=== PATIENT | male | born 1940 | race American Indian/Alaskan Native ===

== ENCOUNTER 2017-01-28 10:50 | Emergency (ER) | payer MEDICARE, MEDICAID ==
--- NOTE | 2017-01-28 10:57 | C.PDOC ---
History Of Present Illness HISTORY LIMITED DUE TO CLINICAL CONDITION. 76 y/o MALE BROUGHT IN BY AMBULANCE FOR REPORTED BREAKTHROUGH SEIZURE DURING DIALYSIS EARLIER TODAY. 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 PT PRESENTS IN POST-ICTAL STATE. DENIES ANY PAIN AND SPEAKING IN LIMITED SENTENCES. NO OTHER COMPLAINTS. Time Seen by Provider: 01/28/17 10:53 History Per: EMS History/Exam Limitations: clinical condition Recent Seizure Activity Began: Just Before Arrival Number Of Seizures: One Quality Of Seizure: Generalized Post-ictal Period: Yes Recent travel outside of the [place]: No Past Medical History Reviewed: Historical Data, Nursing Documentation, Vital Signs Vital Signs: Last Vital Signs Temp 97.5 F L 01/28/17 11:58 Pulse 88 01/28/17 13:12 Resp 17 01/28/17 13:12 BP 134/71 01/28/17 13:12 Pulse Ox 100 01/28/17 13:12 - Medical History PMH: Alzheimer's Disease, Dementia, HTN, Peripheral Edema (R leg edema), End Stage Renal Disease, Chronic Kidney Disease, Seizures Family History: States: Unknown Family Hx - Social History Hx Alcohol Use: No Hx Substance Use: No - Immunization History Hx Tetanus Toxoid Vaccination: No Hx Influenza Vaccination: No Hx Pneumococcal Vaccination: No Review Of Systems Review Of Systems: ROS cannot be obtained secondary to pt's inabilty to answer questions. (LIMITED DUE TO CONDITION, DENIES PAIN OR HEADACHE) Physical Exam - Physical Exam Appears: Non-toxic, Other (AAO X 2, SPEAKING IN LIMITED SENTENCES) Skin: Warm, Dry Head: Atraumatic, Normacephalic Oral Mucosa: Moist Chest: Symmetrical Cardiovascular: Rhythm Regular Respiratory: Normal Breath Sounds, No Rales, No Rhonchi, No Wheezing Gastrointestinal/Abdominal: Soft, No Tenderness, No Guarding, No Rebound Back: Normal Inspection Extremity: Normal ROM, Capillary Refill (< 2 SEC. ) ED Course And Treatment ECG: Interpreted By Me ECG Rhythm: Sinus Rhythm Rate From EC (BPM) O2 Sat by Pulse Oximetry: 97 (RA) Pulse Ox Interpretation: Normal ED OBSERVATION Discharge: Yes Date of observation admission: 01/28/17 Time of observation admission: 10:45 - Observation admission statement Patient is being placed in observation because:: BREAKTHROUGH SZ - Goals of Observation Goals of observation are:: NEURO INTACT - Progress Note Progress Note: 01/28/17 13:24 IMPROVED ALERTNESS. +PO TRIAL. NO RECUR SZ. Disposition Counseled Patient/Family Regarding: Studies Performed, Diagnosis, Need For Followup - Disposition Referrals: YOUR,PMD [Other] Disposition: HOME/ ROUTINE Disposition Time: 13:25 Condition: IMPROVED Instructions: Recurrent Seizures in Adults (ED) - Clinical Impression Clinical Impression: Breakthrough seizure - Scribe Statement The provider has reviewed the documentation as recorded by the Jason COLEMAN Provider Attestation: All medical record entries made by the Jason were at my direction and personally dictated by me. I have reviewed the chart and agree that the record accurately reflects my personal performance of the history, physical exam, medical decision making, and the department course for this patient. I have also personally directed, reviewed, and agree with the discharge instructions and disposition.
[2017-01-28 12:00] LABS: INR 3.6
[2017-01-28 14:46] VITALS: BP 149/96; PULSE 90; RESP 22; TEMP 97.7; O2SAT 96
--- NOTE | 2017-01-31 14:10 | CARD ---
APPROVED REPORT EKG Measurement Heart [id number] <Conclusion> Normal sinus rhythm Possible Left atrial enlargement Possible Right ventricular hypertrophy Prolonged QT Abnormal ECG
== END 2017-01-28 14:45 | disposition home or self-care (01) ==
LOC: C.ER 10:50
DX: G40.909 Epilepsy, unspecified, not intractable, without status epilepticus (principal); I12.9 Hypertensive chronic kidney disease with stage 1 through stage 4 chronic kidney disease, or unspecified chronic kidney disease; N18.9 Chronic kidney disease, unspecified; Z99.2 Dependence on renal dialysis; E11.9 Type 2 diabetes mellitus without complications; G30.9 Alzheimer's disease, unspecified; F02.80 Dementia in other diseases classified elsewhere, unspecified severity, without behavioral disturbance, psychotic disturbance, mood disturbance, and anxiety

== ENCOUNTER 2017-09-20 11:37 | Inpatient (IN) | payer MEDICARE, MEDICAID ==
--- NOTE | 2017-09-20 12:24 | C.PDOC ---
History Of Present Illness 76 yr old male with PMHx of dementia and seizures, sent to the ER from [facility] after being found on the floor this morning. As per [facility], unsure of cause and duration. Patient was found to have a laceration to the forehead. ROS is unable to be obtained due to clinical condition. Patient is A&Ox1, oriented to person which is baseline. - HPI Time Seen by Provider: 09/20/17 12:08 Chief Complaint (Nursing): Trauma History Per: Other ([facility]) History/Exam Limitations: clinical condition Onset/Duration Of Symptoms: Unknown Past Medical History Reviewed: Historical Data, Nursing Documentation, Vital Signs Vital Signs: Last Vital Signs Temp 97.6 F 09/20/17 16:00 Pulse 74 09/20/17 16:00 Resp 18 09/20/17 16:00 BP 121/82 09/20/17 16:00 Pulse Ox 98 09/20/17 16:00 - Medical History PMH: Alzheimer's Disease, Dementia, Deep Vein Thrombosis, HTN, Peripheral Edema (R leg edema), End Stage Renal Disease, Chronic Kidney Disease, Seizures Family History: States: No Known Family Hx - Social History Hx Alcohol Use: No Hx Substance Use: No - Immunization History Hx Tetanus Toxoid Vaccination: No Hx Influenza Vaccination: No Hx Pneumococcal Vaccination: No Review Of Systems Review Of Systems: ROS cannot be obtained secondary to pt's inabilty to answer questions. Physical Exam - Physical Exam Appears: Non-toxic, No Acute Distress Skin: Warm, Dry, Other (+ 4cm laceration to the forehead) Head: Normacephalic, Other (+ swelling, tenderness and hematoma to the forehead) Eye(s): bilateral: Normal Inspection, PERRL, EOMI Oral Mucosa: Moist Neck: Normal, Normal ROM, No Midline Cervical Tenderness, No Paracervical Tenderness, Supple Chest: Symmetrical, No Tenderness Cardiovascular: Rhythm Regular, No Murmur Respiratory: Normal Breath Sounds, No Rales, No Rhonchi, No Wheezing Back: Normal Inspection, No CVA Tenderness Neurological/Psych: Other (A&Ox1 ) ED Course And Treatment - Laboratory Results Result Diagrams: 09/20/17 12:56 09/20/17 14:15 ECG: Interpreted By Me, Viewed By Me ECG Rhythm: Sinus Rhythm Interpretation Of ECG: PVC. Normal intervals. Normal axis. Nonspecific T wave changes. Rate From EC (BPM) O2 Sat by Pulse Oximetry: 96 (RA) Pulse Ox Interpretation: Normal - Other Rad CXR X-Ray: Viewed By Me, Read By Radiologist Interpretation: HISTORY: chest pain. COMPARISON: Chest x-ray performed . TECHNIQUE: Chest, one view. FINDINGS: Examination limited by habitus. LUNGS: Right hilar/ infrahilar opacity, possibly infiltrate. Please note that chest x-ray has limited sensitivity for the detection of pulmonary masses. PLEURA: No significant pleural effusion identified. No definite pneumothorax . CARDIOVASCULAR: Cardiomegaly. Atherosclerotic calcification of the aorta. OSSEOUS STRUCTURES: No acute osseous abnormality identified. VISUALIZED UPPER ABDOMEN: Mild elevation of the right hemidiaphragm. OTHER FINDINGS: None. IMPRESSION: Right hilar/ infrahilar opacity, possibly infiltrate. Cardiomegaly. - CT Scan/US CT - Head Other Rad Studies (CT/US): Read By Radiologist, Radiology Report Reviewed CT/US Interpretation: PROCEDURE: CT HEAD WITHOUT CONTRAST. HISTORY: Fall. COMPARISON: 06/21/2016. TECHNIQUE: Axial computed tomography images were obtained through the head/brain without intravenous contrast. Radiation dose: Total exam DLP = 867.23 mGy-cm. This CT exam was performed using one or more of the following dose reduction techniques: Automated exposure control, adjustment of the mA and/or kV according to patient size, and/or use of iterative reconstruction technique. FINDINGS: HEMORRHAGE: No intracranial hemorrhage. BRAIN: Again seen are moderate chronic microangiopathic changes. There is no mass, mass effect or abnormal extra-axial fluid collection. There are coarse atherosclerotic calcifications in the cavernous carotid arteries. There are symmetric bilateral basal ganglia calcifications. VENTRICLES: There is moderate age-related global parenchymal volume loss and proportionate enlargement of the ventricles and cortical sulci. CALVARIUM: There is no calvarial fracture. Again seen are right parietal and left frontal susan holes. There is a large midline and left paramedian frontal scalp tissue hematoma. PARANASAL SINUSES: There is chronic left sphenoid sinusitis with soft tissue extending in the pneumatized left lateral recess of the sphenoid sinus. . The remaining included paranasal sinuses are predominantly clear. MASTOID AIR CELLS : Predominantly clear. OTHER FINDINGS: None. IMPRESSION: No acute intracranial abnormality. Large midline and left frontal scalp hematoma. Moderate chronic microangiopathic changes and moderate age-related global parenchymal volume loss. Chronic left sphenoid sinusitis. CT - Cervical Spine Other Rad Studies (CT/US): Read By Radiologist, Radiology Report Reviewed CT/US Interpretation: PROCEDURE: CT Cervical Spine without contrast. HISTORY: Trauma. COMPARISON: None available. TECHNIQUE: Axial computed tomography images were obtained of the cervical spine without the use of intravenous contrast. Coronal and sagittal reformatted images were created and reviewed. Radiation dose: Total exam DLP = 691.40 mGy-cm. This CT exam was performed using one or more of the following dose reduction techniques: Automated exposure control, adjustment of the mA and/or kV according to patient size, and/ or use of iterative reconstruction technique. FINDINGS: VERTEBRAE: There is normal alignment of the cervical vertebral bodies. There is straightening of the cervical spine with loss of normal cervical lordosis. Vertebral height is normal. There is no acute fracture or traumatic anterior listhesis. The craniocervical junction is normal. The atlantoaxial joint is normal. DISCS/ SPINAL CANAL/NEURAL FORAMINA: There is multilevel degenerative disc disease with anterior osteophytes, reduced disc heights and multilevel facet arthropathy , worse at C6-7 with a broad-based central disc protrusion, moderate to severe neural foraminal stenosis and mild spinal canal stenosis. PARASPINAL SOFT TISSUES: The paraspinous soft tissues are normal. OTHER FINDINGS: No apical pneumothorax. IMPRESSION: 1. No acute fracture or traumatic anterior listhesis. 2. Straightening of the cervical spine may be positional or related to muscle spasm. 3. Multilevel degenerative disc disease, worse at C6-7 with broad-based central disc protrusion, mild spinal canal stenosis and moderate to severe neural foraminal narrowing. Laceration - Laceration Repair Forehead Wound Length (In cm): 4 Description Of Wound: Linear Wound Cleansed With: Sterile Saline (300 cc) Anesthesia: Lidocaine 1%, With Epi Wound Examination: Irrigated With Saline, No FB With Wound Exploration, No Tendon Injury With Wound Exploration Wound Closure: Suture (5) Suture Technique And Material Used: Interrupted, Prolene (5-0) Wound Complexity: Simple Medical Decision Making Medical Decision Making: IMPRESSION: Head injury s/p fall, laceration PLAN: * CT - Head, Cervical Spine * CXR * EKG * Labs * Tetanus IM NOTE: * Laceration repair done, bacitracin is applied, patient tolerated the procedure well * Tetanus is administered Disposition Discussed With : Lilian Urrutia Doctor Will See Patient In The: Hospital - Disposition Disposition: HOSPITALIZED Disposition Time: 14:49 Condition: FAIR - Clinical Impression Clinical Impression: Syncope, Seizure, Head injury, NSTEMI (non-ST elevated myocardial infarction) - Scribe Statement The provider has reviewed the documentation as recorded by the Scribe Anni Tolbert Provider Attestation: All medical record entries made by the Fernandoibe were at my direction and personally dictated by me. I have reviewed the chart and agree that the record accurately reflects my personal performance of the history, physical exam, medical decision making, and the department course for this patient. I have also personally directed, reviewed, and agree with the discharge instructions and disposition.
--- NOTE | 2017-09-20 13:05 | RAD ---
HISTORY: chest pain COMPARISON: Chest x-ray performed 06/20/16 TECHNIQUE: Chest, one view. FINDINGS: Examination limited by habitus. LUNGS: Right hilar/ infrahilar opacity, possibly infiltrate. Please note that chest x-ray has limited sensitivity for the detection of pulmonary masses. PLEURA: No significant pleural effusion identified. No definite pneumothorax . CARDIOVASCULAR: Cardiomegaly. Atherosclerotic calcification of the aorta. OSSEOUS STRUCTURES: No acute osseous abnormality identified. VISUALIZED UPPER ABDOMEN: Mild elevation of the right hemidiaphragm. OTHER FINDINGS: None. IMPRESSION: Right hilar/ infrahilar opacity, possibly infiltrate. Cardiomegaly.
[2017-09-20 13:15] LABS: INR 1.7; PROTHROMBIN TIME 19.8 SECONDS (9.7-12.2)
[2017-09-20 13:16] LABS: RBC 4.42 Mil/uL (4.40-5.90); WHITE BLOOD COUNT 4.8 K/uL (4.8-10.8)
[2017-09-20 13:25] LABS: MEAN CORPUSCULAR HEMOGLOBIN 32.8 pg (27.0-31.0); MEAN PLATELET VOLUME 8.2 fL (7.2-11.7); RED CELL DISTRIBUTION WIDTH 18.6 % (11.5-14.5)
[2017-09-20 13:26] LABS: HEMOGLOBIN 14.5 g/dL (12.0-18.0); MEAN CELL VOLUME 99.1 fL (80.0-94.0)
[2017-09-20 13:29] LABS: LYMPH % 19.9 % (20.0-40.0); MONO % 17.7 % (0.0-10.0); NEUT % 58.3 % (50.0-75.0)
[2017-09-20 13:30] LABS: BASO % 0.1 % (0.0-2.0); NEUT # 2.8 K/uL (1.8-7.0); NRBC % 0.2 % (0.0-2.0)
[2017-09-20 13:31] LABS: EOS # 0.2 K/uL (0.0-0.7); LYMPH # 0.9 K/uL (1.0-4.3); MONO # 0.8 K/uL (0.0-0.8)
--- NOTE | 2017-09-20 14:00 | CT ---
PROCEDURE: CT HEAD WITHOUT CONTRAST. HISTORY: Fall COMPARISON: 06/21/2016. TECHNIQUE: Axial computed tomography images were obtained through the head/brain without intravenous contrast. Radiation dose: Total exam DLP = 867.23 mGy-cm. This CT exam was performed using one or more of the following dose reduction techniques: Automated exposure control, adjustment of the mA and/or kV according to patient size, and/or use of iterative reconstruction technique. FINDINGS: HEMORRHAGE: No intracranial hemorrhage. BRAIN: Again seen are moderate chronic microangiopathic changes. There is no mass, mass effect or abnormal extra-axial fluid collection. There are coarse atherosclerotic calcifications in the cavernous carotid arteries. There are symmetric bilateral basal ganglia calcifications. VENTRICLES: There is moderate age-related global parenchymal volume loss and proportionate enlargement of the ventricles and cortical sulci. CALVARIUM: There is no calvarial fracture. Again seen are right parietal and left frontal susan holes. There is a large midline and left paramedian frontal scalp tissue hematoma. PARANASAL SINUSES: There is chronic left sphenoid sinusitis with soft tissue extending in the pneumatized left lateral recess of the sphenoid sinus. . The remaining included paranasal sinuses are predominantly clear. MASTOID AIR CELLS: Predominantly clear. OTHER FINDINGS: None. IMPRESSION: No acute intracranial abnormality. Large midline and left frontal scalp hematoma. Moderate chronic microangiopathic changes and moderate age-related global parenchymal volume loss. Chronic left sphenoid sinusitis.
--- NOTE | 2017-09-20 14:11 | CT ---
PROCEDURE: CT Cervical Spine without contrast HISTORY: Trauma COMPARISON: None available. TECHNIQUE: Axial computed tomography images were obtained of the cervical spine without the use of intravenous contrast. Coronal and sagittal reformatted images were created and reviewed. Radiation dose: Total exam DLP = 691.40 mGy-cm. This CT exam was performed using one or more of the following dose reduction techniques: Automated exposure control, adjustment of the mA and/or kV according to patient size, and/or use of iterative reconstruction technique. FINDINGS: VERTEBRAE: There is normal alignment of the cervical vertebral bodies. There is straightening of the cervical spine with loss of normal cervical lordosis. Vertebral height is normal. There is no acute fracture or traumatic anterior listhesis. The craniocervical junction is normal. The atlantoaxial joint is normal. DISCS/SPINAL CANAL/NEURAL FORAMINA: There is multilevel degenerative disc disease with anterior osteophytes, reduced disc heights and multilevel facet arthropathy, worse at C6-7 with a broad-based central disc protrusion, moderate to severe neural foraminal stenosis and mild spinal canal stenosis. PARASPINAL SOFT TISSUES: The paraspinous soft tissues are normal. OTHER FINDINGS: No apical pneumothorax. IMPRESSION: 1. No acute fracture or traumatic anterior listhesis. 2. Straightening of the cervical spine may be positional or related to muscle spasm. 3. Multilevel degenerative disc disease, worse at C6-7 with broad-based central disc protrusion, mild spinal canal stenosis and moderate to severe neural foraminal narrowing.
[2017-09-20 14:38] LABS: CALCIUM 8.6 mg/dl (8.6-10.4)
[2017-09-20] MEDS ORDERED: Lidocaine 1%/Epinephrine 1:100000 30 ml vial IJ ONE (14:54)
[2017-09-20 14:59] LABS: TROPONIN I 0.199 ng/mL (0.00-0.120)
[2017-09-20] MEDS ORDERED: Lidocaine 2% w Epi 1:100,000 Inj IJ ONE (15:06)
[2017-09-20] MEDS ORDERED: DTap Vaccine 0.5 ml Vial IM STA (15:36)
[2017-09-20] MEDS ORDERED: Bacitracin 500 Units/gm Oint Foilpak UD TOP ONE (15:47)
[2017-09-20] MEDS ORDERED: Tdap Vaccine 0.5 ml Vial (10-64 yrs) IM ONE (16:55)
[2017-09-20] MEDS ORDERED: Bacitracin 500 Units/gm Oint Foilpak UD ONE (16:56)
--- NOTE | 2017-09-20 16:57 | CP.PCM.HP ---
Past Patient History - Infectious Disease Hx of Infectious Diseases: None - Past Medical History & Family History Past Medical History?: Yes - Past Social History Smoking Status: Never Smoked - CARDIAC Hx Hypertension: Yes Hx Peripheral Edema: Yes (R leg edema) - PULMONARY Hx Respiratory Disorders: No - NEUROLOGICAL Hx Alzheimer's Disease: Yes Hx Dementia: Yes Hx Seizures: Yes - HEENT Hx HEENT Problems: No - RENAL Hx Chronic Kidney Disease: Yes - ENDOCRINE/METABOLIC Hx Diabetes Mellitus Type 1: Yes Hx Diabetes Mellitus Type 2: Yes - HEMATOLOGICAL/ONCOLOGICAL Other/Comment: DVT - MUSCULOSKELETAL/RHEUMATOLOGICAL Hx Falls: No - PSYCHIATRIC Hx Substance Use: No - SURGICAL HISTORY Hx Surgeries: (Unable to obtain) - ANESTHESIA Hx Anesthesia: Yes Meds Allergies/Adverse Reactions: Allergies Allergy/AdvReac Type Severity Reaction Status Date / Time No Known Allergies Allergy Verified 07/19/16 10:39 Physical Exam - Constitutional Appears: Well - Head Exam Head Exam: ATRAUMATIC, NORMAL INSPECTION, NORMOCEPHALIC - Eye Exam Eye Exam: EOMI, Normal appearance, PERRL Pupil Exam: NORMAL ACCOMODATION, PERRL - ENT Exam ENT Exam: Mucous Membranes Moist, Normal Exam - Neck Exam Neck exam: Positive for: Normal Inspection - Respiratory Exam Respiratory Exam: Decreased Breath Sounds - Cardiovascular Exam Cardiovascular Exam: REGULAR RHYTHM, +S1, +S2 - GI/Abdominal Exam GI & Abdominal Exam: Diminished Bowel Sounds, Soft - Rectal Exam Rectal Exam: Deferred Results - Vital Signs Recent Vital Signs: Last Vital Signs Temp 97.6 F 09/20/17 16:00 Pulse 74 09/20/17 16:00 Resp 18 09/20/17 16:00 BP 121/82 09/20/17 16:00 Pulse Ox 96 09/20/17 16:11 - Labs Result Diagrams: 09/20/17 12:56 09/20/17 14:15 Labs: Laboratory Results - last 24 hr 09/20/17 09/20/17 09/20/17 12:56 12:56 14:15 WBC 4.8 RBC 4.42 Hgb 14.5 D Hct 43.8 MCV 99.1 H D MCH 32.8 H MCHC 33.0 RDW 18.6 H Plt Count 121 L D MPV 8.2 Neut % (Auto) 58.3 Lymph % (Auto) 19.9 L Towns % (Auto) 17.7 H Eos % (Auto) 4.0 Baso % (Auto) 0.1 Neut # (Auto) 2.8 Lymph # (Auto) 0.9 L Towns # (Auto) 0.8 Eos # (Auto) 0.2 Baso # (Auto) 0.0 Differential Comment PT 19.8 H INR 1.7 APTT 40 H Sodium 137 Potassium 3.9 Chloride 94 L Carbon Dioxide 24 Anion Gap 23 H BUN 40 H Creatinine 7.1 H Est GFR ( Amer) 9 Est GFR (Non-Af Amer) 8 Random Glucose 101 Calcium 8.6 Total Bilirubin 1.6 H AST 26 ALT 7 L D Alkaline Phosphatase 130 H Total Creatine Kinase 115 Troponin I 0.1990 H* Total Protein 8.0 Albumin 4.0 Globulin 4.0 H Albumin/Globulin Ratio 1.0
[2017-09-20 21:32] LABS: CK-MB 3.67 ng/mL (0.0-3.38); TROPONIN I 0.185 ng/mL (0.00-0.120)
[2017-09-20 22:21] LABS: PROLACTIN 26.4 ng/mL (3.7-17.9)
[2017-09-20 22:22] LABS: FREE T4 0.81 ng/dL (0.78-2.19)
[2017-09-20 23:10] LABS: FOLATE 8.3 ng/mL
--- NOTE | 2017-09-21 07:12 | CP.PCM.CON ---
History of Present Illness - History of Present Illness History of Present Illness: 76 yr old male with PMHx of dementia and seizures, sent to the ER from assisted after being found on the floor this morning. As per assisted, unsure of cause and duration. Patient was found to have a laceration to the forehead. ROS is unable to be obtained due to clinical condition. Patient is A&Ox1, oriented to person which is baseline. PM/SHx HTN chronic stable DM chronic fair Dementia chronic Seizures ESRD on HD via L. UE AVF Patient does not report hx of CO or CVA Review of Systems - Review of Systems All systems: reviewed and no additional remarkable complaints except Past Patient History - Infectious Disease Hx of Infectious Diseases: None - Past Medical History & Family History Past Medical History?: Yes - Past Social History Smoking Status: Never Smoked - CARDIAC Hx Hypertension: Yes Hx Peripheral Edema: Yes (R leg edema) - PULMONARY Hx Respiratory Disorders: No - NEUROLOGICAL Hx Alzheimer's Disease: Yes Hx Dementia: Yes Hx Seizures: Yes - HEENT Hx HEENT Problems: No - RENAL Hx Chronic Kidney Disease: Yes Hx Dialysis: Yes Type of Dialysis Access: FERNANDO AV shunt - ENDOCRINE/METABOLIC Hx Diabetes Mellitus Type 1: Yes Hx Diabetes Mellitus Type 2: Yes - HEMATOLOGICAL/ONCOLOGICAL Other/Comment: DVT - MUSCULOSKELETAL/RHEUMATOLOGICAL Hx Falls: Yes - PSYCHIATRIC Hx Substance Use: No - SURGICAL HISTORY Hx Surgeries: (Unable to obtain) - ANESTHESIA Hx Anesthesia: Yes Meds Allergies/Adverse Reactions: Allergies Allergy/AdvReac Type Severity Reaction Status Date / Time No Known Allergies Allergy Verified 07/19/16 10:39 - Medications Medications: Current Medications Calcium Acetate (Phoslo) 667 mg PO [facility] Last Admin: 09/20/17 22:05 Dose: 667 mg Diphenhydramine HCl (Benadryl) 25 mg PO Q6 PRN PRN Reason: Itching / Pruritus Levetiracetam (Keppra) 500 mg PO BID [facility] Memantine (Namenda) 10 mg PO DAILY [facility] Pantoprazole Sodium (Protonix Ec Tab) 40 mg PO DAILY [facility] Pneumococcal Polyvalent Vaccine (Pneumovax 23 Vaccine) 0.5 ml IM .ONCE ONE Stop: 09/22/17 10:01 Rosuvastatin Calcium (Crestor) 10 mg PO [facility] Last Admin: 09/20/17 22:05 Dose: 10 mg Topiramate (Topamax) 25 mg PO BID [facility] Last Admin: 09/20/17 20:49 Dose: 25 mg Physical Exam - Constitutional Appears: No Acute Distress - Head Exam Head Exam: NORMOCEPHALIC. absent: ATRAUMATIC (head LAC) - Eye Exam Eye Exam: EOMI, Normal appearance - ENT Exam ENT Exam: Mucous Membranes Moist, Normal Oropharynx - Neck Exam Neck exam: Positive for: Normal Inspection. Negative for: Tenderness, Thyromegaly - Respiratory Exam Respiratory Exam: Clear to Auscultation Bilateral. absent: Rales, Rhonchi, Wheezes - Cardiovascular Exam Cardiovascular Exam: REGULAR RHYTHM, +S1, +S2. absent: Gallop, Rubs, +S4, Systolic Murmur - GI/Abdominal Exam GI & Abdominal Exam: Normal Bowel Sounds, Soft. absent: Tenderness - Extremities Exam Extremities exam: Negative for: normal inspection - Neurological Exam Neurological exam: Alert - Psychiatric Exam Psychiatric exam: Normal Affect - Skin Skin Exam: Rash (LE with hyperpigmentation and 'woody hard texture'), Warm Results - Vital Signs Recent Vital Signs: Last Vital Signs Temp 97.7 F 09/20/17 23:30 Pulse 59 L 09/20/17 23:30 Resp 20 09/20/17 23:30 BP 118/84 09/20/17 23:30 Pulse Ox 96 09/20/17 23:30 - Labs Result Diagrams: 09/20/17 12:56 09/20/17 14:15 Labs: Laboratory Results - last 24 hr 09/20/17 09/20/17 09/20/17 12:56 12:56 14:15 WBC 4.8 RBC 4.42 Hgb 14.5 D Hct 43.8 MCV 99.1 H D MCH 32.8 H MCHC 33.0 RDW 18.6 H Plt Count 121 L D MPV 8.2 Neut % (Auto) 58.3 Lymph % (Auto) 19.9 L [place] % (Auto) 17.7 H Eos % (Auto) 4.0 Baso % (Auto) 0.1 Neut # (Auto) 2.8 Lymph # (Auto) 0.9 L [place] # (Auto) 0.8 Eos # (Auto) 0.2 Baso # (Auto) 0.0 Differential Comment ESR PT 19.8 H INR 1.7 APTT 40 H Sodium 137 Potassium 3.9 Chloride 94 L Carbon Dioxide 24 Anion Gap 23 H BUN 40 H Creatinine 7.1 H Est GFR ( Amer) 9 Est GFR (Non-Af Amer) 8 POC Glucose (mg/dL) Random Glucose 101 Hemoglobin A1c Calcium 8.6 Total Bilirubin 1.6 H AST 26 ALT 7 L D Alkaline Phosphatase 130 H Total Creatine Kinase 115 CK-MB (Mass) Troponin I 0.1990 H* Total Protein 8.0 Albumin 4.0 Globulin 4.0 H Albumin/Globulin Ratio 1.0 Vitamin B12 Folate Free T4 TSH 3rd Generation Prolactin 09/20/17 09/20/17 09/20/17 20:57 21:02 21:45 WBC RBC Hgb Hct MCV MCH MCHC RDW Plt Count MPV Neut % (Auto) Lymph % (Auto) [place] % (Auto) Eos % (Auto) Baso % (Auto) Neut # (Auto) Lymph # (Auto) [place] # (Auto) Eos # (Auto) Baso # (Auto) Differential Comment ESR 9 PT INR APTT Sodium Potassium Chloride Carbon Dioxide Anion Gap BUN Creatinine Est GFR ( Amer) Est GFR (Non-Af Amer) POC Glucose (mg/dL) 204 H Random Glucose Hemoglobin A1c Calcium Total Bilirubin AST ALT Alkaline Phosphatase Total Creatine Kinase 115 CK-MB (Mass) 3.67 H Troponin I 0.1850 H* Total Protein Albumin Globulin Albumin/Globulin Ratio Vitamin B12 Folate Free T4 TSH 3rd Generation Prolactin 09/20/17 09/20/17 09/20/17 21:45 21:45 21:45 WBC RBC Hgb Hct MCV MCH MCHC RDW Plt Count MPV Neut % (Auto) Lymph % (Auto) [place] % (Auto) Eos % (Auto) Baso % (Auto) Neut # (Auto) Lymph # (Auto) [place] # (Auto) Eos # (Auto) Baso # (Auto) Differential Comment ESR PT INR APTT Sodium Potassium Chloride Carbon Dioxide Anion Gap BUN Creatinine Est GFR ( Amer) Est GFR (Non-Af Amer) POC Glucose (mg/dL) Random Glucose Hemoglobin A1c 6.0 Calcium Total Bilirubin AST ALT Alkaline Phosphatase Total Creatine Kinase CK-MB (Mass) Troponin I Total Protein Albumin Globulin Albumin/Globulin Ratio Vitamin B12 > 1000 H Folate 8.3 Free T4 0.81 TSH 3rd Generation 2.78 Prolactin 26.4 H 09/21/17 06:30 WBC RBC Hgb Hct MCV MCH MCHC RDW Plt Count MPV Neut % (Auto) Lymph % (Auto) [place] % (Auto) Eos % (Auto) Baso % (Auto) Neut # (Auto) Lymph # (Auto) [place] # (Auto) Eos # (Auto) Baso # (Auto) Differential Comment ESR PT INR APTT Sodium Potassium Chloride Carbon Dioxide Anion Gap BUN Creatinine Est GFR ( Amer) Est GFR (Non-Af Amer) POC Glucose (mg/dL) 94 Random Glucose Hemoglobin A1c Calcium Total Bilirubin AST ALT Alkaline Phosphatase Total Creatine Kinase CK-MB (Mass) Troponin I Total Protein Albumin Globulin Albumin/Globulin Ratio Vitamin B12 Folate Free T4 TSH 3rd Generation Prolactin - EKG Data EKG Interpreted by: Myself (NSR, isolated PVCs) Assessment & Plan - Assessment and Plan (Free Text) Assessment: 1. s/p fall ? seizure ? CVA F/U neurology recc 2. NSVT 4 beats > PVCs isolated on EKG otherwise NSR, no acute ischemic changes > BDLN troponin: no active CP/Angina, no ADHF or hemodynamic instability Consider chronic renal disease and/or truama fall as secondary causes ---> Plan echo to eval cardiac structure and fucntion as well as wall motion. ---> Check and replace Mg if needed ---> Add ASA 81 Noted PLT 121 3. HTN > controlled/Normal ---> add metoprolol 25 daily if ok with neuro 4. LIPIDS > on Crestor 5. DM > Monitor sugars: Rx per PMD 6. ESRD > HD per schedule
--- NOTE | 2017-09-21 07:16 | CP.PCM.CON ---
History of Present Illness - History of Present Illness History of Present Illness: CONSULT DICTATED POST CONCUSSION SYNDROME Hx Sz/ DEMENTIA CHECK EEG NO NEED TOPAMAX CONTINUE KEPPRA NOW OOB DVT PROPHYLAXIS FALL PRECAUTION CONT HD Past Patient History - Infectious Disease Hx of Infectious Diseases: None - Past Medical History & Family History Past Medical History?: Yes - Past Social History Smoking Status: Never Smoked - CARDIAC Hx Hypertension: Yes Hx Peripheral Edema: Yes (R leg edema) - PULMONARY Hx Respiratory Disorders: No - NEUROLOGICAL Hx Alzheimer's Disease: Yes Hx Dementia: Yes Hx Seizures: Yes - HEENT Hx HEENT Problems: No - RENAL Hx Chronic Kidney Disease: Yes Hx Dialysis: Yes Type of Dialysis Access: FERNANDO AV shunt - ENDOCRINE/METABOLIC Hx Diabetes Mellitus Type 1: Yes Hx Diabetes Mellitus Type 2: Yes - HEMATOLOGICAL/ONCOLOGICAL Other/Comment: DVT - MUSCULOSKELETAL/RHEUMATOLOGICAL Hx Falls: Yes - PSYCHIATRIC Hx Substance Use: No - SURGICAL HISTORY Hx Surgeries: (Unable to obtain) - ANESTHESIA Hx Anesthesia: Yes Meds Allergies/Adverse Reactions: Allergies Allergy/AdvReac Type Severity Reaction Status Date / Time No Known Allergies Allergy Verified 07/19/16 10:39 - Medications Medications: Current Medications Calcium Acetate (Phoslo) 667 mg PO HS [facility] Last Admin: 09/20/17 22:05 Dose: 667 mg Diphenhydramine HCl (Benadryl) 25 mg PO Q6 PRN PRN Reason: Itching / Pruritus Levetiracetam (Keppra) 500 mg PO BID [facility] Memantine (Namenda) 10 mg PO DAILY [facility] Pantoprazole Sodium (Protonix Ec Tab) 40 mg PO DAILY [facility] Pneumococcal Polyvalent Vaccine (Pneumovax 23 Vaccine) 0.5 ml IM .ONCE ONE Stop: 09/22/17 10:01 Rosuvastatin Calcium (Crestor) 10 mg PO HS [facility] Last Admin: 09/20/17 22:05 Dose: 10 mg Topiramate (Topamax) 25 mg PO BID [facility] Last Admin: 09/20/17 20:49 Dose: 25 mg Results - Vital Signs Recent Vital Signs: Last Vital Signs Temp 97.7 F 09/20/17 23:30 Pulse 59 L 09/20/17 23:30 Resp 20 09/20/17 23:30 BP 118/84 09/20/17 23:30 Pulse Ox 96 09/20/17 23:30 - Labs Result Diagrams: 09/20/17 12:56 09/20/17 14:15 Labs: Laboratory Results - last 24 hr 09/20/17 09/20/17 09/20/17 12:56 12:56 14:15 WBC 4.8 RBC 4.42 Hgb 14.5 D Hct 43.8 MCV 99.1 H D MCH 32.8 H MCHC 33.0 RDW 18.6 H Plt Count 121 L D MPV 8.2 Neut % (Auto) 58.3 Lymph % (Auto) 19.9 L [place] % (Auto) 17.7 H Eos % (Auto) 4.0 Baso % (Auto) 0.1 Neut # (Auto) 2.8 Lymph # (Auto) 0.9 L [place] # (Auto) 0.8 Eos # (Auto) 0.2 Baso # (Auto) 0.0 Differential Comment ESR PT 19.8 H INR 1.7 APTT 40 H Sodium 137 Potassium 3.9 Chloride 94 L Carbon Dioxide 24 Anion Gap 23 H BUN 40 H Creatinine 7.1 H Est GFR ( Amer) 9 Est GFR (Non-Af Amer) 8 POC Glucose (mg/dL) Random Glucose 101 Hemoglobin A1c Calcium 8.6 Total Bilirubin 1.6 H AST 26 ALT 7 L D Alkaline Phosphatase 130 H Total Creatine Kinase 115 CK-MB (Mass) Troponin I 0.1990 H* Total Protein 8.0 Albumin 4.0 Globulin 4.0 H Albumin/Globulin Ratio 1.0 Vitamin B12 Folate Free T4 TSH 3rd Generation Prolactin 09/20/17 09/20/17 09/20/17 20:57 21:02 21:45 WBC RBC Hgb Hct MCV MCH MCHC RDW Plt Count MPV Neut % (Auto) Lymph % (Auto) [place] % (Auto) Eos % (Auto) Baso % (Auto) Neut # (Auto) Lymph # (Auto) [place] # (Auto) Eos # (Auto) Baso # (Auto) Differential Comment ESR 9 PT INR APTT Sodium Potassium Chloride Carbon Dioxide Anion Gap BUN Creatinine Est GFR ( Amer) Est GFR (Non-Af Amer) POC Glucose (mg/dL) 204 H Random Glucose Hemoglobin A1c Calcium Total Bilirubin AST ALT Alkaline Phosphatase Total Creatine Kinase 115 CK-MB (Mass) 3.67 H Troponin I 0.1850 H* Total Protein Albumin Globulin Albumin/Globulin Ratio Vitamin B12 Folate Free T4 TSH 3rd Generation Prolactin 09/20/17 09/20/17 09/20/17 21:45 21:45 21:45 WBC RBC Hgb Hct MCV MCH MCHC RDW Plt Count MPV Neut % (Auto) Lymph % (Auto) [place] % (Auto) Eos % (Auto) Baso % (Auto) Neut # (Auto) Lymph # (Auto) [place] # (Auto) Eos # (Auto) Baso # (Auto) Differential Comment ESR PT INR APTT Sodium Potassium Chloride Carbon Dioxide Anion Gap BUN Creatinine Est GFR ( Amer) Est GFR (Non-Af Amer) POC Glucose (mg/dL) Random Glucose Hemoglobin A1c 6.0 Calcium Total Bilirubin AST ALT Alkaline Phosphatase Total Creatine Kinase CK-MB (Mass) Troponin I Total Protein Albumin Globulin Albumin/Globulin Ratio Vitamin B12 > 1000 H Folate 8.3 Free T4 0.81 TSH 3rd Generation 2.78 Prolactin 26.4 H 09/21/17 06:30 WBC RBC Hgb Hct MCV MCH MCHC RDW Plt Count MPV Neut % (Auto) Lymph % (Auto) [place] % (Auto) Eos % (Auto) Baso % (Auto) Neut # (Auto) Lymph # (Auto) [place] # (Auto) Eos # (Auto) Baso # (Auto) Differential Comment ESR PT INR APTT Sodium Potassium Chloride Carbon Dioxide Anion Gap BUN Creatinine Est GFR ( Amer) Est GFR (Non-Af Amer) POC Glucose (mg/dL) 94 Random Glucose Hemoglobin A1c Calcium Total Bilirubin AST ALT Alkaline Phosphatase Total Creatine Kinase CK-MB (Mass) Troponin I Total Protein Albumin Globulin Albumin/Globulin Ratio Vitamin B12 Folate Free T4 TSH 3rd Generation Prolactin
[2017-09-21 08:28] LABS: INR 1.8; PROTHROMBIN TIME 20.4 SECONDS (9.7-12.2)
[2017-09-21 09:11] LABS: MAGNESIUM 2.4 mg/dL (1.6-2.3)
[2017-09-21 09:23] LABS: CK-MB 4.31 ng/mL (0.0-3.38); TROPONIN I 0.193 ng/mL (0.00-0.120)
[2017-09-21] MEDS: Pantoprazole 40 mg EC Tab PO SCH (09:51)
--- NOTE | 2017-09-21 11:31 | CP.PCM.PN ---
Subjective - Date & Time of Evaluation Date of Evaluation: 09/21/17 Time of Evaluation: 11:30 - Subjective Subjective: Progress note. Attending: DR Urrutia. Pt seen and examined at bedside. No acute distress Says he may have missed taking anti seizure meds sometimes. No fevers, chills, vomiting, diarrhea. Objective - Vital Signs/Intake and Output Vital Signs (last 24 hours): Temp Pulse Resp BP Pulse Ox 98.0 F 63 20 132/85 96 09/21/17 08:16 09/21/17 08:16 09/21/17 08:16 09/21/17 08:16 09/21/17 08:16 Intake and Output: 09/21/17 09/21/17 06:59 18:59 Intake Total 150 Balance 150 - Medications Medications: Current Medications Calcium Acetate (Phoslo) [address] [facility] Last Admin: 09/20/17 22:05 Dose: 667 mg Diphenhydramine HCl (Benadryl) 25 mg PO Q6 PRN PRN Reason: Itching / Pruritus Levetiracetam (Keppra) 500 mg PO BID [facility] Last Admin: 09/21/17 09:51 Dose: 500 mg Memantine (Namenda) 10 mg PO DAILY [facility] Last Admin: 09/21/17 09:51 Dose: 10 mg Pantoprazole Sodium (Protonix Ec Tab) 40 mg PO DAILY [facility] Last Admin: 09/21/17 09:51 Dose: 40 mg Pneumococcal Polyvalent Vaccine (Pneumovax 23 Vaccine) 0.5 ml IM .ONCE ONE Stop: 09/22/17 10:01 Rosuvastatin Calcium (Crestor) [address] [facility] Last Admin: 09/20/17 22:05 Dose: 10 mg Topiramate (Topamax) 25 mg PO BID [facility] Last Admin: 09/21/17 09:51 Dose: 25 mg - Labs Labs: 09/20/17 12:56 09/20/17 14:15 PT 20.4 SECONDS (9.7-12.2) H 09/21/17 08:10 INR 1.8 09/21/17 08:10 APTT 40 SECONDS (21-34) H 09/20/17 12:56 - Constitutional Appears: Non-toxic, No Acute Distress - Head Exam Head Exam: NORMOCEPHALIC. absent: ATRAUMATIC, NORMAL INSPECTION - Eye Exam Eye Exam: EOMI - ENT Exam ENT Exam: Mucous Membranes Moist - Respiratory Exam Respiratory Exam: NORMAL BREATHING PATTERN. absent: Respiratory Distress - Cardiovascular Exam Cardiovascular Exam: +S1, +S2 - GI/Abdominal Exam GI & Abdominal Exam: Soft, Normal Bowel Sounds. absent: Tenderness - Extremities Exam Extremities Exam: Full ROM, Normal Inspection - Back Exam Back Exam: NORMAL INSPECTION - Neurological Exam Neurological Exam: Alert, Awake, Oriented x3 - Psychiatric Exam Psychiatric exam: Flat Affect - Skin Skin Exam: Dry, Intact, Normal Color, Warm Assessment and Plan - Assessment and Plan (Free Text) Assessment: This is a 76 yo male with 1. Syncope -may be secondary to seizure disorder -pt sustained hematoma -cardiology consult. recs appreciated -neurology consult. recs appreciated. -neurosurgery evaluation. recs appreciated. -EKG: NSR, no ischemic changes, some PVCs -troponins elevated -may be secondary to renal disease or damage from fall -brain mri pending -continue crestor 2. hx of seizure disorder -continue keppra PO BID -continue topiramate BID 3. ESRD -continue calcium acetate PO HS -HD as scheduled. 4. hx of dementia -continue memantine 5. GI/DVT ppx -scds -protonix discussed with DR. Urrutia.
--- NOTE | 2017-09-21 11:51 | CARD ---
APPROVED REPORT EKG Measurement Heart [id number] <Conclusion> Normal sinus rhythm with PVC Right ventricular hypertrophy Prolonged QT Abnormal ECG
--- NOTE | 2017-09-21 12:38 | MRI ---
PROCEDURE: MRI brain dated 09/21/2014 HISTORY: Post concussion. COMPARISON: Comparison made with prior scan brain dated 09/20/2014. TECHNIQUE: Multiplanar, multisequence MR images of the brain were obtained without intravenous contrast enhancement. . Note that the examination limited by motion artifact. FINDINGS: HEMORRHAGE: No acute parenchymal, subarachnoid or hemorrhage. . No evidence of hemosiderin deposition is identified on gradient echo weighted sequence. DWI: No evidence of an acute or early subacute infarction seen on diffusion imaging. BRAIN PARENCHYMA: Moderate diffuse/confluent chronic white matter ischemic changes seen extending peripherally the deep and subcortical white matter both cerebral hemispheres. No obvious parenchymal loss fax mass or collection seen on this noncontrast study. Moderate significant central volume loss evidenced by disproportionate enlargement of the ventricles compared sulci. . VENTRICLES: Unremarkable. No hydrocephalus. CRANIUM: Re- demonstrated are bilateral frontoparietal and left frontal susan holes. Calvarium otherwise unremarkable so far as can be determined based on. . . Interval slight decrease size mid and left frontal scalp contusion. . ORBITS: Orbits and contents unremarkable. PARANASAL SINUSES/MASTOIDS: There is near complete opacification sphenoid sinus. There is small focal area polypoid like mucosal thickening and a mucous retention cyst formation right maxillary antrum. VASCULAR SYSTEM: Visualized major vascular flow voids at skull base are patent. OTHER FINDINGS: None. IMPRESSION: Limited motion degraded study. No acute intracranial hemorrhage. Moderate chronic white matter ischemic changes. No obvious parenchymal mass or collection. Moderate to fairly significant central volume loss there. Interval slight decrease size left parasagittal and frontal scalp contusion
[2017-09-21 12:48] LABS: SQUAMOUS EPITHIAL 1 /hpf (0-5); URINE BILIRUBIN NEGATIVE (NEGATIVE); URINE BLOOD NEGATIVE (NEGATIVE); URINE CLARITY Clear (Clear); URINE COLOR Amber (YELLOW); URINE GLUCOSE (UA) NORMAL (Normal); URINE LEUKOCYTE ESTERASE NEG Leu/uL (Negative); URINE NITRATE NEGATIVE (NEGATIVE); URINE PROTEIN 3+ mg/dL (NEGATIVE)
--- NOTE | 2017-09-21 14:10 | CP.PCM.PN ---
Subjective - Date & Time of Evaluation Date of Evaluation: 09/21/17 Time of Evaluation: 14:20 - Subjective Subjective: clinically same Objective - Vital Signs/Intake and Output Vital Signs (last 24 hours): Temp Pulse Resp BP Pulse Ox 98.0 F 63 20 132/85 96 09/21/17 08:16 09/21/17 08:16 09/21/17 08:16 09/21/17 08:16 09/21/17 08:16 Intake and Output: 09/21/17 09/21/17 06:59 18:59 Intake Total 150 Balance 150 - Medications Medications: Current Medications Calcium Acetate (Phoslo) 667 mg PO [facility] Last Admin: 09/20/17 22:05 Dose: 667 mg Diphenhydramine HCl (Benadryl) 25 mg PO Q6 PRN PRN Reason: Itching / Pruritus Levetiracetam (Keppra) 500 mg PO BID [facility] Last Admin: 09/21/17 09:51 Dose: 500 mg Memantine (Namenda) 10 mg PO DAILY [facility] Last Admin: 09/21/17 09:51 Dose: 10 mg Pantoprazole Sodium (Protonix Ec Tab) 40 mg PO DAILY [facility] Last Admin: 09/21/17 09:51 Dose: 40 mg Pneumococcal Polyvalent Vaccine (Pneumovax 23 Vaccine) 0.5 ml IM .ONCE ONE Stop: 09/22/17 10:01 Rosuvastatin Calcium (Crestor) 10 mg PO [facility] Last Admin: 09/20/17 22:05 Dose: 10 mg Topiramate (Topamax) 25 mg PO BID [facility] Last Admin: 09/21/17 09:51 Dose: 25 mg - Labs Labs: 09/20/17 12:56 09/20/17 14:15 PT 20.4 SECONDS (9.7-12.2) H 09/21/17 08:10 INR 1.8 09/21/17 08:10 APTT 40 SECONDS (21-34) H 09/20/17 12:56 - Constitutional Appears: Well - Head Exam Head Exam: ATRAUMATIC, NORMAL INSPECTION, NORMOCEPHALIC - Eye Exam Eye Exam: EOMI, Normal appearance, PERRL Pupil Exam: NORMAL ACCOMODATION, PERRL - ENT Exam ENT Exam: Mucous Membranes Moist, Normal Exam - Neck Exam Neck Exam: Full ROM, Normal Inspection. absent: Lymphadenopathy - Respiratory Exam Respiratory Exam: Decreased Breath Sounds - Cardiovascular Exam Cardiovascular Exam: REGULAR RHYTHM, +S1, +S2 - GI/Abdominal Exam GI & Abdominal Exam: Soft, Diminished Bowel Sounds - Rectal Exam Rectal Exam: Deferred
[2017-09-22 09:24] LABS: ALBUMIN 3.9 g/dL (3.5-5.0); MAGNESIUM 2.5 mg/dL (1.6-2.3)
--- NOTE | 2017-09-22 09:38 | CON ---
DATE: ATTENDING PHYSICIAN: Ramy Urrutia MD The patient is in room number 668, bed B. REASON FOR CONSULTATION: Head trauma, possible post concussion syndrome. CHIEF COMPLAINT: The patient was [facility] with a history of the patient found on the floor indefinite period with head injury. From neurologic point of view, I was called to evaluate him for further management. HISTORY OF PRESENTING ILLNESS: Mr. Valentino Mantilla is a 76-year-old, well built male, brought in to [facility] from the prison with a history of found him on the floor with face down and with abrasion on his head. No history of seizure episodes or bowel or bladder incontinence at the scene. No foaming of mouth or biting tongue. Because of the head laceration, he was brought into [facility] for further evaluation. PAST MEDICAL HISTORY: Dementia, DVT, hypertension, peripheral edema, end-stage renal disease, seizures. PERSONAL HISTORY: Denies smoking or alcohol use. REVIEW OF SYSTEMS: A 12-point system has been reviewed from Neuro status post fall with head injury. MEDICATIONS: Benadryl, Crestor, Keppra, Namenda, PhosLo, Protonix, topiramate. PHYSICAL EXAMINATION: VITAL SIGNS: Blood pressure 118/84, mean artery pressure of 95, respirations 16, temperature afebrile. NECK: Supple. No carotid bruit. HEART: Sounds regular. EXTREMITIES: Right leg externally rotated. NEUROLOGIC: The patient knows he is in the hospital. He does not know the name of the hospital. He does not know the year. He stated the year is 1996, current president is Mr. Cote. He moves one to two-step command. Significant right and left confusion. Speech at times spontaneous. CRANIAL NERVE EXAMINATION: Responds to visual threat. Pupils reactive. Extraocular movement decreased in all direction. No facial sensory deficit. No facial asymmetry. Hearing is normal. Tongue is midline. Good gag. MOTOR EXAMINATION: He could be able to lift both upper extremities against gravity. Lower extremities, right leg externally rotated. DEEP TENDON REFLEXES: Absent throughout. Plantars are equal response on both sides. SENSORY EXAMINATION: Responds to pain symmetrically on both sides. COORDINATION AND GAIT: Deferred at this time. WORKUP: CT of the head reviewed by me showed atrophy, microangiopathic changes were noted in the subcortical region. MRI of the brain also reviewed, does not show any acute stroke process. The scalp, edema noted over left frontal region. However, no intracranial bleed is seen as per the MRI. BLOOD WORKUP: WBC 4.8, hemoglobin 14.5, hematocrit 43.80, platelet 121. PT 19.8, INR 1.7, PTT 40. Sodium 137, potassium 3.9, chloride 94, BUN 40, creatinine 7.1, glucose 94, alkaline phosphatase 130. Troponin 0.1850. Vitamin B12 more than 1000 and TSH 2.78 with a prolactin at 26.4. CONCLUSION: Mr. Valentino Mantilla as per the neurological examination, he did have a fall face down and injured his scalp region. The patient does not show any significant long tract sign at present. The patient is significantly suffering from dementia, which is probably secondary to his metabolic process superimposed with senile dementia of Alzheimer type. The patient carried a history of seizures and medication. He has been taking is Keppra as well as Topamax which is not in therapeutic dose at present. RECOMMENDATIONS: 1. Fall precaution. 2. Electroencephalography. 3. Topamax, which probably I think is unwanted drug at present that can be discontinued. Continue dementia medication at present as he has been getting it. 4. The patient is not a neurosurgical candidate. Alirio Valentino MD
--- NOTE | 2017-09-22 09:40 | CON ---
DATE: 09/21/2017 HISTORY OF PRESENT ILLNESS: This is a 76[facility] resident that apparently fell, syncopized, hit his head, suffered a bump on his forehead, and was apparently brought and then admitted to [facility]. Upon interviewing today, he has absolutely no complaints. No headaches. No neurological signs or symptoms of any sort. PHYSICAL EXAMINATION: NEUROLOGIC: He is bright, awake and alert. He follows all commands. He is somewhat confused although he is oriented to being in the hospital. He is moving all extremities with excellent strength. He has no drift. He has obvious subgaleal hematoma in the forehead area. CT of the brain was basically negative. He has old susan holes probably from having old subdural hematoma. He has the frontal subgaleal hematoma seen, but there is absolutely no intracranial pathology of any sort. IMPRESSION AND PLAN: There was no indication for any neurosurgical involvement in this case perhaps at the endpoint would recommend [facility] the [facility]. Rangel Guadarrama MD
[2017-09-22] MEDS: Pantoprazole 40 mg EC Tab PO SCH (09:41)
[2017-09-22] MEDS ORDERED: Pneumococcal 23-Valent Vaccine IM ONE (10:00)
[2017-09-22 11:44] LABS: EOS # 0.2 K/uL (0.0-0.7); EOS % 4.3 % (0.0-4.0); HEMOGLOBIN 13.4 g/dL (12.0-18.0); LYMPH # 0.6 K/uL (1.0-4.3); LYMPH % 13.7 % (20.0-40.0); MEAN CELL VOLUME 99.3 fL (80.0-94.0); MEAN CORPUSCULAR HEMOGLOBIN 32.5 pg (27.0-31.0); MEAN CORPUSCULAR HGB CONC 32.7 g/dL (33.0-37.0); MEAN PLATELET VOLUME 7.8 fL (7.2-11.7); MONO # 0.7 K/uL (0.0-0.8); MONO % 15.8 % (0.0-10.0); NEUT % 65.2 % (50.0-75.0); NRBC % 0.2 % (0.0-2.0); RBC 4.11 Mil/uL (4.40-5.90); RED CELL DISTRIBUTION WIDTH 18.9 % (11.5-14.5); WHITE BLOOD COUNT 4.6 K/uL (4.8-10.8)
--- NOTE | 2017-09-22 11:57 | CARD ---
APPROVED REPORT EXAM: Two-dimensional and M-mode echocardiogram with Doppler and color Doppler. Other Information Quality : GoodRhythm : INDICATION Syncope HEAD IMJURY, ELEVATED TROPONIN 2D DIMENSIONS IVSd0.8 (0.7-1.1cm)LVDd5.7 (3.9-5.9cm) PWd0.8 (0.7-1.1cm)LVDs5.4 (2.5-4.0cm) FS (%) 5.4 %LVEF (%)11.9 (>50%) M-Mode DIMENSIONS Left Atrium (MM)5.73 (2.5-4.0cm)Aortic Root3.38 (2.2-3.7cm) Aortic Cusp Exc.1.57 (1.5-2.0cm) Mitral Valve MV E Vbbtuwmx20.1cm/sMV A Pcihybzx82.2cm/sE/A ratio1.4 TDI E/Lateral E'0.0E/Medial E'0.0 Tricuspid Valve TR Peak Gpynahwu052zp/sTR Peak Gr.[id number] LEFT VENTRICLE The Left Ventricle is mildly dilated. There is normal left ventricular wall thickness. Left ventricle systolic function is severely impaired. The Ejection Fraction is <20%. There is global hypokinesis of the left ventricle. There is a flattened septum consistent with right ventricle volume and pressure overload. LV filling pressure is mildly elevated No left ventricle thrombus noted on this study. There is no ventricular septal defect visualized. There is no left ventricular aneurysm. There is no mass noted in the left ventricle. RIGHT VENTRICLE The right ventricle is mildly to moderately dilated. There is normal right ventricular wall thickness. Systolic function is moderately reduced. ATRIA The left atrium is moderately dilated. The right atrium is moderately dilated. The interatrial septum is intact with no evidence for an atrial septal defect. AORTIC VALVE The aortic valve is moderately to severely thickened. No aortic regurgitation is present. There is no aortic valvular stenosis. There is no aortic valvular vegetation. MITRAL VALVE The mitral valve is normal in structure and function. There is no evidence of mitral valve prolapse. There is no mitral valve stenosis. Mitral regurgitation is mild. MV ERO IS 0.1 cm2 TRICUSPID VALVE The tricuspid valve is normal in structure and function. There is moderate to severe tricuspid regurgitation. Right ventricular systolic pressure is estimated at greater than 60 mmHg. There is no tricuspid valve prolapse or vegetation. There is no tricuspid valve stenosis. PULMONIC VALVE The pulmonary valve is normal in structure and function. There is no pulmonic valvular regurgitation. There is no pulmonic valvular stenosis. GREAT VESSELS The aortic root is normal in size. The ascending aorta is normal in size. The pulmonary artery is normal. . The IVC is dilated. PERICARDIAL EFFUSION The pericardium appears normal. There is no pleural effusion. <Conclusion> Left ventricle systolic function is severely impaired. The Ejection Fraction is <20%. There is global hypokinesis of the left ventricle. There is a flattened septum consistent with right ventricle volume and pressure overload. LV filling pressure is mildly elevated The left atrium is moderately dilated. The right ventricle is mildly to moderately dilated. Systolic function is moderately reduced. Mitral regurgitation is mild. MV ERO IS 0.1 cm2 There is moderate to severe tricuspid regurgitation. Right ventricular systolic pressure is estimated at greater than 60 mmHg. .
--- NOTE | 2017-09-22 12:53 | CP.PCM.PN ---
Subjective - Date & Time of Evaluation Date of Evaluation: 09/22/17 Time of Evaluation: 12:53 - Subjective Subjective: PGY2 Medicine Note for Dr. Wood Urrutia; all management as per Dr. Wood Urrutia Patient seen and examined at bedside this AM; patient is not alert or oriented to place or time, but is oriented to person, has no acute complaints to offer but is not a reliable historian; denies any headaches, chest pain, shortness of breath, abdominal pain, n/v/d, dysuria/freq/urg or lower extremity pain/ swelling. Objective - Vital Signs/Intake and Output Vital Signs (last 24 hours): Temp Pulse Resp BP Pulse Ox 97.2 F L 79 18 129/56 L 97 09/22/17 07:45 09/22/17 07:45 09/22/17 07:45 09/22/17 07:45 09/22/17 07:45 Intake and Output: 09/22/17 09/22/17 06:59 18:59 Output Total 100 Balance -100 - Medications Medications: Current Medications Calcium Acetate (Phoslo) 667 mg PO [facility] Last Admin: 09/21/17 21:35 Dose: 667 mg Diphenhydramine HCl (Benadryl) 25 mg PO Q6 PRN PRN Reason: Itching / Pruritus Levetiracetam (Keppra) 500 mg PO BID [facility] Last Admin: 09/22/17 09:41 Dose: 500 mg Memantine (Namenda) 10 mg PO DAILY [facility] Last Admin: 09/22/17 09:41 Dose: 10 mg Metoprolol Succinate (Toprol Xl) 12.5 mg PO DAILY [facility] Pantoprazole Sodium (Protonix Ec Tab) 40 mg PO DAILY [facility] Last Admin: 09/22/17 09:41 Dose: 40 mg Rosuvastatin Calcium (Crestor) 10 mg PO [facility] Last Admin: 09/21/17 21:35 Dose: 10 mg Topiramate (Topamax) 25 mg PO BID [facility] Last Admin: 09/22/17 09:41 Dose: 25 mg - Labs Labs: 09/22/17 11:31 09/22/17 08:58 PT 20.4 SECONDS (9.7-12.2) H 09/21/17 08:10 INR 1.8 09/21/17 08:10 APTT 40 SECONDS (21-34) H 09/20/17 12:56 - Head Exam Additional comments: Head Exam: NORMOCEPHALIC. absent: ATRAUMATIC, NORMAL INSPECTION - Eye Exam Eye Exam: EOMI - ENT Exam ENT Exam: Mucous Membranes Moist - Respiratory Exam Respiratory Exam: NORMAL BREATHING PATTERN. absent: Respiratory Distress - Cardiovascular Exam Cardiovascular Exam: +S1, +S2 - GI/Abdominal Exam GI & Abdominal Exam: Soft, Normal Bowel Sounds. absent: Tenderness - Extremities Exam Extremities Exam: Full ROM, Normal Inspection - Back Exam Back Exam: NORMAL INSPECTION - Neurological Exam Neurological Exam: Alert, Awake, Oriented x3 - Psychiatric Exam Psychiatric exam: Flat Affect - Skin Skin Exam: Dry, Intact, Normal Color, Warm Assessment and Plan - Assessment and Plan (Free Text) Assessment: This is a 76 yo male with Syncope -may be secondary to seizure disorder -pt sustained hematoma -cardiology consult. recs appreciated -neurology consult. recs appreciated. -neurosurgery evaluation. recs appreciated. -EKG: NSR, no ischemic changes, some PVCs -troponins elevated; most likely 2/2 to ESRD -brain mri shows no acute findings but is limited 2/2 to motion -echo shows severe low EF with EF below 20% and global hypokinesis; diastolic and sytolic dysfunction; acute on chronic -continue crestor Acute on Chronic CHF -EF markedly decreased with EF of below 20% -diastolic and systolic dysfunction -cardiology is on board; will appreciate their recs; patient should be on sudden cardiac prophylaxis hx of seizure disorder -continue keppra PO BID -continue topiramate BID ESRD -continue calcium acetate PO HS -HD as scheduled. hx of dementia -continue memantine GI/DVT ppx -scds -protonix discussed with Dr. Wood Urrutia; all management as per Dr. Wood Urrutia
--- NOTE | 2017-09-22 13:18 | CP.PCM.PN ---
Subjective - Date & Time of Evaluation Date of Evaluation: 09/22/17 Time of Evaluation: 13:18 - Subjective Subjective: No SOB or CP Appears comfortable No fevers, chills Objective - Vital Signs/Intake and Output Vital Signs (last 24 hours): Temp Pulse Resp BP Pulse Ox 97.2 F L 79 18 129/56 L 97 09/22/17 07:45 09/22/17 07:45 09/22/17 07:45 09/22/17 07:45 09/22/17 07:45 Intake and Output: 09/22/17 09/22/17 06:59 18:59 Output Total 100 Balance -100 - Medications Medications: Current Medications Calcium Acetate (Phoslo) 667 mg PO HS [facility] Last Admin: 09/21/17 21:35 Dose: 667 mg Diphenhydramine HCl (Benadryl) 25 mg PO Q6 PRN PRN Reason: Itching / Pruritus Levetiracetam (Keppra) 500 mg PO BID [facility] Last Admin: 09/22/17 09:41 Dose: 500 mg Memantine (Namenda) 10 mg PO DAILY [facility] Last Admin: 09/22/17 09:41 Dose: 10 mg Metoprolol Succinate (Toprol Xl) 12.5 mg PO DAILY [facility] Pantoprazole Sodium (Protonix Ec Tab) 40 mg PO DAILY [facility] Last Admin: 09/22/17 09:41 Dose: 40 mg Rosuvastatin Calcium (Crestor) 10 mg PO HS [facility] Last Admin: 09/21/17 21:35 Dose: 10 mg Topiramate (Topamax) 25 mg PO BID [facility] Last Admin: 09/22/17 09:41 Dose: 25 mg - Labs Labs: 09/22/17 11:31 09/22/17 08:58 PT 20.4 SECONDS (9.7-12.2) H 09/21/17 08:10 INR 1.8 09/21/17 08:10 APTT 40 SECONDS (21-34) H 09/20/17 12:56 - Constitutional Appears: No Acute Distress - Head Exam Head Exam: NORMOCEPHALIC - Eye Exam Eye Exam: EOMI, Normal appearance - ENT Exam ENT Exam: Mucous Membranes Moist, Normal Oropharynx - Neck Exam Neck Exam: Normal Inspection - Respiratory Exam Respiratory Exam: Clear to Ausculation Bilateral, NORMAL BREATHING PATTERN. absent: Rhonchi, Wheezes - Cardiovascular Exam Cardiovascular Exam: REGULAR RHYTHM, +S1, +S2, Murmur - GI/Abdominal Exam GI & Abdominal Exam: Soft. absent: Tenderness - Extremities Exam Extremities Exam: absent: Pedal Edema - Neurological Exam Neurological Exam: Alert, Awake Assessment and Plan - Assessment and Plan (Free Text) Assessment: 1. s/p fall ? seizure ? CVA F/U neurology recc 2. NSVT 4 beats > PVCs isolated on EKG otherwise NSR, no acute ischemic changes > BDLN troponin: no active CP/Angina, no ADHF or hemodynamic instability ECHO directly reviewed by me: Severe global hypokinesia EF <25%, RVE, LAE moderate, mild-mod MR, mod TR, severe PULM HTN PASP 70mmHg, aortic sclerosis with focal calcification but no stenosis. Flattening of septum, Probably RV dysfunction. SEVERE DILATED CARDIOMYOPATHY: ---> will need to discuss with patient and family regards decision for cath and eventual AICD. GIVEN CHRONIC DEMENTIA...I DO NOT FEEL HE IS CAPABLE OF UNDERSTANDING RX OR OPTIONS. --> will get EP eval as initially he presented with Syncope. --> meanwhile he needs addition and titration of CHF therapy: change toprol to coreg 3.125 BID, add ARLETTE-I or ARB and aldactone and titrate up as BP and HR tolerates. ---> low dose lasix for maintainence. --> Keep Mg > 2.0 ---> Given RV enlargement: suggest CT angio versus V/Q to r/o PE. (discussed case with [employer]) ---> Add ASA 81 Noted PLT 121 3. HTN > controlled/Normal 4. LIPIDS > on Crestor 5. DM > Monitor sugars: Rx per PMD 6. ESRD > HD per schedule
--- NOTE | 2017-09-22 17:26 | CP.PCM.PN ---
Subjective - Date & Time of Evaluation Date of Evaluation: 09/22/17 Time of Evaluation: 17:00 - Subjective Subjective: pt clinically same Objective - Vital Signs/Intake and Output Vital Signs (last 24 hours): Temp Pulse Resp BP Pulse Ox 97.2 F L 66 20 111/87 100 09/22/17 15:00 09/22/17 15:00 09/22/17 15:00 09/22/17 16:30 09/22/17 15:00 Intake and Output: 09/22/17 09/22/17 06:59 18:59 Output Total 100 Balance -100 - Medications Medications: Current Medications Calcium Acetate (Phoslo) 667 mg PO HS [facility] Last Admin: 09/21/17 21:35 Dose: 667 mg Diphenhydramine HCl (Benadryl) 25 mg PO Q6 PRN PRN Reason: Itching / Pruritus Levetiracetam (Keppra) 500 mg PO BID [facility] Last Admin: 09/22/17 09:41 Dose: 500 mg Memantine (Namenda) 10 mg PO DAILY [facility] Last Admin: 09/22/17 09:41 Dose: 10 mg Metoprolol Succinate (Toprol Xl) 12.5 mg PO DAILY [facility] Pantoprazole Sodium (Protonix Ec Tab) 40 mg PO DAILY [facility] Last Admin: 09/22/17 09:41 Dose: 40 mg Rosuvastatin Calcium (Crestor) 10 mg PO HS [facility] Last Admin: 09/21/17 21:35 Dose: 10 mg Topiramate (Topamax) 25 mg PO BID [facility] Last Admin: 09/22/17 09:41 Dose: 25 mg - Labs Labs: 09/22/17 11:31 09/22/17 08:58 PT 20.4 SECONDS (9.7-12.2) H 09/21/17 08:10 INR 1.8 09/21/17 08:10 APTT 40 SECONDS (21-34) H 09/20/17 12:56
[2017-09-23 07:26] LABS: EOS # 0.2 K/uL (0.0-0.7); EOS % 5.5 % (0.0-4.0); HEMOGLOBIN 13.5 g/dL (12.0-18.0); LYMPH # 0.6 K/uL (1.0-4.3); LYMPH % 13.3 % (20.0-40.0); MEAN CELL VOLUME 98.9 fL (80.0-94.0); MEAN CORPUSCULAR HEMOGLOBIN 32.6 pg (27.0-31.0); MEAN CORPUSCULAR HGB CONC 32.9 g/dL (33.0-37.0); MEAN PLATELET VOLUME 8.3 fL (7.2-11.7); MONO # 0.7 K/uL (0.0-0.8); MONO % 15.4 % (0.0-10.0); NEUT # 2.9 K/uL (1.8-7.0); NEUT % 64.8 % (50.0-75.0); NRBC % 0.1 % (0.0-2.0); RBC 4.15 Mil/uL (4.40-5.90); RED CELL DISTRIBUTION WIDTH 18.6 % (11.5-14.5); WHITE BLOOD COUNT 4.4 K/uL (4.8-10.8)
[2017-09-23 07:42] LABS: ALB/GLOB RATIO 0.9 (1.0-2.1); ALBUMIN 3.6 g/dL (3.5-5.0); CALCIUM 8.6 mg/dl (8.6-10.4)
--- NOTE | 2017-09-23 08:38 | CP.PCM.CON ---
History of Present Illness - History of Present Illness History of Present Illness: I have been asked by Dr. Sherwood to see this patient with syncope and This is a pleasant 76 yo man with a CV history of CVA, HTN, ESRD on HD and mixed hyperlipidemia. His medical history also includes dementia and a seizure disorder maintained on keppra. PMEDHx: HTN, CVA, HTN, ESRD on HD, seizure disorder, DVT, prostate CA, dementia , mixed hyperlipidemia, anemia SocialHx: Lives in assisted living with an ankle emergency alert bracelet. Family Hx: No tobacco, no alcohol Echo 09/21/17 EF 20% BiV CHF LAE 5.7/5.4 mild MR pulm HTN mod-severe TR Past Patient History - Infectious Disease Hx of Infectious Diseases: None - Past Medical History & Family History Past Medical History?: Yes - Past Social History Smoking Status: Never Smoked - CARDIAC Hx Hypertension: Yes - PULMONARY Hx Respiratory Disorders: No - NEUROLOGICAL Hx Alzheimer's Disease: Yes Hx Dementia: Yes Hx Seizures: Yes - HEENT Hx HEENT Problems: No - RENAL Hx Chronic Kidney Disease: Yes Hx Dialysis: Yes Type of Dialysis Access: FERNANDO AV shunt - ENDOCRINE/METABOLIC Hx Diabetes Mellitus Type 1: Yes Hx Diabetes Mellitus Type 2: Yes - HEMATOLOGICAL/ONCOLOGICAL Other/Comment: DVT - MUSCULOSKELETAL/RHEUMATOLOGICAL Hx Falls: Yes - PSYCHIATRIC Hx Substance Use: No - SURGICAL HISTORY Hx Surgeries: (Unable to obtain) - ANESTHESIA Hx Anesthesia: Yes Meds Allergies/Adverse Reactions: Allergies Allergy/AdvReac Type Severity Reaction Status Date / Time No Known Allergies Allergy Verified 07/19/16 10:39 - Medications Medications: Current Medications Calcium Acetate (Phoslo) 667 mg PO HS [facility] Last Admin: 09/22/17 21:46 Dose: 667 mg Diphenhydramine HCl (Benadryl) 25 mg PO Q6 PRN PRN Reason: Itching / Pruritus Levetiracetam (Keppra) 500 mg PO BID [facility] Last Admin: 09/22/17 19:02 Dose: 500 mg Memantine (Namenda) 10 mg PO DAILY [facility] Last Admin: 09/22/17 09:41 Dose: 10 mg Metoprolol Succinate (Toprol Xl) 12.5 mg PO DAILY [facility] Pantoprazole Sodium (Protonix Ec Tab) 40 mg PO DAILY [facility] Last Admin: 09/22/17 09:41 Dose: 40 mg Rosuvastatin Calcium (Crestor) 10 mg PO HS [facility] Last Admin: 09/22/17 21:46 Dose: 10 mg Topiramate (Topamax) 25 mg PO BID [facility] Last Admin: 09/22/17 19:02 Dose: 25 mg Results - Vital Signs Recent Vital Signs: Last Vital Signs Temp 97.8 F 09/22/17 23:45 Pulse 73 09/22/17 23:45 Resp 20 09/22/17 23:45 BP 133/78 09/22/17 23:45 Pulse Ox 73 L 09/22/17 23:45 - Labs Result Diagrams: 09/23/17 06:55 09/23/17 06:55 Labs: Laboratory Results - last 24 hr 09/22/17 09/22/17 09/22/17 08:58 11:31 12:17 WBC 4.6 L RBC 4.11 L Hgb 13.4 Hct 40.9 MCV 99.3 H MCH 32.5 H MCHC 32.7 L RDW 18.9 H Plt Count 114 L MPV 7.8 Neut % (Auto) 65.2 Lymph % (Auto) 13.7 L [place] % (Auto) 15.8 H Eos % (Auto) 4.3 H Baso % (Auto) 1.0 Neut # (Auto) 3.0 Lymph # (Auto) 0.6 L [place] # (Auto) 0.7 Eos # (Auto) 0.2 Baso # (Auto) 0.0 Sodium 141 Potassium 5.0 Chloride 98 Carbon Dioxide 25 Anion Gap 23 H BUN 50 H Creatinine 7.3 H Est GFR ( Amer) 9 Est GFR (Non-Af Amer) 7 POC Glucose (mg/dL) 149 H Random Glucose 88 Calcium 9.0 Magnesium 2.5 H Total Bilirubin 1.9 H AST 29 ALT 7 L Alkaline Phosphatase 133 H Total Protein 7.8 Albumin 3.9 Globulin 4.0 H Albumin/Globulin Ratio 1.0 09/22/17 09/22/17 09/23/17 15:57 21:28 06:25 WBC RBC Hgb Hct MCV MCH MCHC RDW Plt Count MPV Neut % (Auto) Lymph % (Auto) [place] % (Auto) Eos % (Auto) Baso % (Auto) Neut # (Auto) Lymph # (Auto) [place] # (Auto) Eos # (Auto) Baso # (Auto) Sodium Potassium Chloride Carbon Dioxide Anion Gap BUN Creatinine Est GFR ( Amer) Est GFR (Non-Af Amer) POC Glucose (mg/dL) 116 H 201 H 74 Random Glucose Calcium Magnesium Total Bilirubin AST ALT Alkaline Phosphatase Total Protein Albumin Globulin Albumin/Globulin Ratio 09/23/17 09/23/17 06:55 06:55 WBC 4.4 L RBC 4.15 L Hgb 13.5 Hct 41.1 MCV 98.9 H MCH 32.6 H MCHC 32.9 L RDW 18.6 H Plt Count 109 L MPV 8.3 Neut % (Auto) 64.8 Lymph % (Auto) 13.3 L [place] % (Auto) 15.4 H Eos % (Auto) 5.5 H Baso % (Auto) 1.0 Neut # (Auto) 2.9 Lymph # (Auto) 0.6 L [place] # (Auto) 0.7 Eos # (Auto) 0.2 Baso # (Auto) 0.0 Sodium 140 Potassium 3.8 Chloride 95 L Carbon Dioxide 30 Anion Gap 18 BUN 37 H Creatinine 5.9 H Est GFR ( Amer) 11 Est GFR (Non-Af Amer) 9 POC Glucose (mg/dL) Random Glucose 83 Calcium 8.6 Magnesium Total Bilirubin 1.2 AST 25 ALT 13 L D Alkaline Phosphatase 146 H Total Protein 7.5 Albumin 3.6 Globulin 3.9 Albumin/Globulin Ratio 0.9 L
[2017-09-23] MEDS: Metoprolol Succinate 12.5 mg XL PO SCH (09:31)
[2017-09-23] MEDS: Pantoprazole 40 mg EC Tab PO SCH (09:31)
--- NOTE | 2017-09-23 09:52 | CP.PCM.PN ---
Subjective - Date & Time of Evaluation Date of Evaluation: 09/23/17 Time of Evaluation: 07:00 - Subjective Subjective: PGY2 Medicine Note for Dr. Wood Urrutia; all management as per Dr. Wood Urrutia Patient seen and examined at bedside this AM; patient is not alert or oriented time (thinks its 1975), but is oriented to person and partially oriented to place (he knows hes in a hospital, but is not sure which one). He admits his dizziness has resolved. He is tolerating his diet and passing normal BMs. Denies any additional acute complaints. Objective - Vital Signs/Intake and Output Vital Signs (last 24 hours): Temp Pulse Resp BP Pulse Ox 98.0 F 66 18 104/80 96 09/23/17 09:24 09/23/17 09:24 09/23/17 09:24 09/23/17 09:24 09/23/17 09:24 - Medications Medications: Current Medications Calcium Acetate (Phoslo) 667 mg PO HS [facility] B[facility]S [facility] Last Admin: 09/22/17 21:46 Dose: 667 mg Diphenhydramine HCl (Benadryl) 25 mg PO Q6 PRN PRN Reason: Itching / Pruritus Levetiracetam (Keppra) 500 mg PO BID [facility]S [facility] Last Admin: 09/23/17 09:31 Dose: 500 mg Memantine (Namenda) 10 mg PO DAILY [facility]S [facility] Last Admin: 09/23/17 09:31 Dose: 10 mg Metoprolol Succinate (Toprol Xl) 12.5 mg PO DAILY [facility] 234 B[facility]S [facility] Last Admin: 09/23/17 09:31 Dose: 12.5 mg Pantoprazole Sodium (Protonix Ec Tab) 40 mg PO DAILY [facility]S [facility] Last Admin: 09/23/17 09:31 Dose: 40 mg Rosuvastatin Calcium (Crestor) 10 mg PO HS [facility] 234 B[facility]S [facility] Last Admin: 09/22/17 21:46 Dose: 10 mg Topiramate (Topamax) 25 mg PO BID [facility] 234 [facility]S [facility] Last Admin: 09/23/17 09:32 Dose: 25 mg - Labs Labs: 09/23/17 06:55 09/23/17 06:55 PT 20.4 SECONDS (9.7-12.2) H 09/21/17 08:10 INR 1.8 09/21/17 08:10 APTT 40 SECONDS (21-34) H 09/20/17 12:56 - Additional Findings Additional findings: - Head Exam Additional comments: Head Exam: NORMOCEPHALIC. absent: ATRAUMATIC, NORMAL INSPECTION - Eye Exam Eye Exam: EOMI - ENT Exam ENT Exam: Mucous Membranes Moist - Respiratory Exam Respiratory Exam: NORMAL BREATHING PATTERN. absent: Respiratory Distress - Cardiovascular Exam Cardiovascular Exam: +S1, +S2 - GI/Abdominal Exam GI & Abdominal Exam: Soft, Normal Bowel Sounds. absent: Tenderness - Extremities Exam Extremities Exam: Full ROM, Normal Inspection - Back Exam Back Exam: NORMAL INSPECTION - Neurological Exam Neurological Exam: Alert, Awake, Oriented x3 - Psychiatric Exam Psychiatric exam: Flat Affect - Skin Skin Exam: Dry, Intact, Normal Color, Warm Assessment and Plan - Assessment and Plan (Free Text) Assessment: This is a 76 yo male with Syncope 09/23: Patients dizziness is much improved today. -may be secondary to seizure disorder -pt sustained hematoma -cardiology consult. recs appreciated -neurology consult. recs appreciated. -neurosurgery evaluation. recs appreciated. -EKG: NSR, no ischemic changes, some PVCs -troponins elevated; most likely 2/2 to ESRD -brain mri shows no acute findings but is limited 2/2 to motion -echo shows severe low EF with EF below 20% and global hypokinesis; diastolic and sytolic dysfunction; acute on chronic -continue crestor Acute on Chronic CHF (Diastoloc / Systolic Dysfunction) 09/23: Per cardiology, pt will need life vest for 3 months (Dr. Pop will coordinate with life vest rep) and AICD in the group home. -EF markedly decreased with EF of below 20% -diastolic and systolic dysfunction -cardiology is on board; will appreciate their recs; patient should be on sudden cardiac prophylaxis Per Cardiology - possible cath and eventual AICD (pt with chronic dimentia, will need convo with family). EP eval as initially he presented with Syncope. Keep Mg > 2.0. Given RV enlargement: suggest CT angio versus V/Q to r/o PE hx of seizure disorder -continue keppra PO BID -continue topiramate BID ESRD -continue calcium acetate PO HS -HD as scheduled. hx of dementia -continue memantine GI/DVT ppx -scds -protonix discussed with Dr. Wood Urrutia; all management as per Dr. Wood Urrutia
--- NOTE | 2017-09-23 12:43 | CP.PCM.PN ---
Subjective - Date & Time of Evaluation Date of Evaluation: 09/23/17 Time of Evaluation: 16:14 - Subjective Subjective: No cardiac compliants No SOB, fevers, chills, N/V No visual complaints Objective - Vital Signs/Intake and Output Vital Signs (last 24 hours): Temp Pulse Resp BP Pulse Ox 98.0 F 66 18 104/80 96 09/23/17 09:24 09/23/17 09:24 09/23/17 09:24 09/23/17 09:24 09/23/17 09:24 - Medications Medications: Current Medications Calcium Acetate (Phoslo) 667 mg PO [facility] Last Admin: 09/22/17 21:46 Dose: 667 mg Diphenhydramine HCl (Benadryl) 25 mg PO Q6 PRN PRN Reason: Itching / Pruritus Levetiracetam (Keppra) 500 mg PO BID [facility] Last Admin: 09/23/17 09:31 Dose: 500 mg Memantine (Namenda) 10 mg PO DAILY [facility] Last Admin: 09/23/17 09:31 Dose: 10 mg Metoprolol Succinate (Toprol Xl) 12.5 mg PO DAILY [facility] Last Admin: 09/23/17 09:31 Dose: 12.5 mg Pantoprazole Sodium (Protonix Ec Tab) 40 mg PO DAILY [facility] Last Admin: 09/23/17 09:31 Dose: 40 mg Rosuvastatin Calcium (Crestor) 10 mg PO [facility] Last Admin: 09/22/17 21:46 Dose: 10 mg Topiramate (Topamax) 25 mg PO BID [facility] Last Admin: 09/23/17 09:32 Dose: 25 mg - Labs Labs: 09/23/17 06:55 09/23/17 06:55 PT 20.4 SECONDS (9.7-12.2) H 09/21/17 08:10 INR 1.8 09/21/17 08:10 APTT 40 SECONDS (21-34) H 09/20/17 12:56 - Constitutional Appears: No Acute Distress - Head Exam Head Exam: NORMOCEPHALIC. absent: ATRAUMATIC (frontal scalp hematoma) - Eye Exam Eye Exam: EOMI - ENT Exam ENT Exam: Mucous Membranes Moist - Neck Exam Neck Exam: Full ROM, Normal Inspection - Respiratory Exam Respiratory Exam: Clear to Ausculation Bilateral, NORMAL BREATHING PATTERN. absent: Rales, Rhonchi, Wheezes - Cardiovascular Exam Cardiovascular Exam: REGULAR RHYTHM, +S1, +S2, Murmur. absent: JVD - GI/Abdominal Exam GI & Abdominal Exam: Soft. absent: Tenderness - Extremities Exam Extremities Exam: Full ROM. absent: Pedal Edema, Tenderness - Neurological Exam Neurological Exam: Alert, Awake Neuro motor strength exam: Left Upper Extremity: 5, Right Upper Extremity: 5, Left Lower Extremity: 5, Right Lower Extremity: 5 - Psychiatric Exam Psychiatric exam: Flat Affect - Skin Skin Exam: Normal Color, Warm Assessment and Plan - Assessment and Plan (Free Text) Assessment: 1. s/p fall ? seizure ? CVA F/U neurology recc 2. NSVT 4 beats > PVCs isolated on EKG otherwise NSR, no acute ischemic changes > BDLN troponin: no active CP/Angina, no ADHF or hemodynamic instability ECHO directly reviewed by me: Severe global hypokinesia EF <25%, RVE, LAE moderate, mild-mod MR, mod TR, severe PULM HTN PASP 70mmHg, aortic sclerosis with focal calcification but no stenosis. Flattening of septum, Probably RV dysfunction. SEVERE DILATED CARDIOMYOPATHY: ---> GIVEN CHRONIC DEMENTIA...I DO NOT FEEL HE IS CAPABLE OF UNDERSTANDING RX OR OPTIONS. ---> Discussed case with PMD & SUPPORT ARCHITECT: Patient should have optimization of CHF therapy and LIfe vest placement: with eventual discussion of additional cardiac w/u as outpatient (cath versus stress testing) to establish ischemic versus NICM cause of CM --> f/u EP recc. --> meanwhile he needs addition and titration of CHF therapy: ---> change toprol to coreg 3.125 BID, add aldactone 12.5 and jessica-I and titrate up as BP and HR tolerates. ---> HD TTS to control volume status +/- lasix if non-oliguric --> Keep Mg > 2.0 ---> Given RV enlargement: suggest CT angio versus V/Q to r/o PE. (discussed case with SUPPORT ARCHITECT)----> deferred by patient (Clinically low suspicion for any PE) ---> Add ASA 81 Noted PLT 121 3. HTN > controlled/Normal 4. LIPIDS > on Crestor 5. DM > Monitor sugars: Rx per PMD 6. ESRD > HD per schedule
--- NOTE | 2017-09-23 12:53 | CARD ---
APPROVED REPORT EKG Measurement Heart [id number] <Conclusion> Sinus rhythm with marked sinus arrhythmia with frequent and consecutive premature ventricular complexes Possible Right ventricular hypertrophy Prolonged QT Abnormal ECG
--- NOTE | 2017-09-23 13:58 | EEG ---
DATE: 09/21/2017. SUBJECTIVE: This is a 16-channel electroencephalogram of awake and lethargic adult. During the study, photic stimulation was performed. Hyperventilation was not performed. The resting electroencephalogram consists of 20 to 30 microvolt, diffused, delta mixed with low theta activities seen at parietal and occipital leads. Some movement artifact contaminated the background rhythm. The photic stimulation did not evoke driving response noted at 2 to 20 Hz. The EKG shows multiple PVCs with normal sinus rhythm. IMPRESSION: This is an abnormal electroencephalogram because of the persistent slowing throughout the record suggestive of bilateral cerebral dysfunction. This is probably secondary to metabolic, vascular, or degenerative process. Please correlate the findings with the neurological and radiological studies. Alirio Valentino MD
--- NOTE | 2017-09-23 18:54 | CP.PCM.PN ---
Subjective - Date & Time of Evaluation Date of Evaluation: 09/23/17 Time of Evaluation: 13:20 - Subjective Subjective: clinically same Objective - Vital Signs/Intake and Output Vital Signs (last 24 hours): Temp Pulse Resp BP Pulse Ox 97.4 F L 66 20 111/72 99 09/23/17 15:15 09/23/17 15:15 09/23/17 15:15 09/23/17 15:15 09/23/17 15:15 - Medications Medications: Current Medications Calcium Acetate (Phoslo) 667 mg PO [facility] Last Admin: 09/22/17 21:46 Dose: 667 mg Diphenhydramine HCl (Benadryl) 25 mg PO Q6 PRN PRN Reason: Itching / Pruritus Levetiracetam (Keppra) 500 mg PO BID [facility] Last Admin: 09/23/17 17:27 Dose: 500 mg Memantine (Namenda) 10 mg PO DAILY [facility] Last Admin: 09/23/17 09:31 Dose: 10 mg Metoprolol Succinate (Toprol Xl) 12.5 mg PO DAILY [facility] Last Admin: 09/23/17 09:31 Dose: 12.5 mg Pantoprazole Sodium (Protonix Ec Tab) 40 mg PO DAILY [facility] Last Admin: 09/23/17 09:31 Dose: 40 mg Rosuvastatin Calcium (Crestor) 10 mg PO [facility] Last Admin: 09/22/17 21:46 Dose: 10 mg Topiramate (Topamax) 25 mg PO BID [facility] Last Admin: 09/23/17 17:27 Dose: 25 mg - Labs Labs: 09/23/17 06:55 09/23/17 06:55 PT 20.4 SECONDS (9.7-12.2) H 09/21/17 08:10 INR 1.8 09/21/17 08:10 APTT 40 SECONDS (21-34) H 09/20/17 12:56 - Constitutional Appears: Well - Head Exam Head Exam: ATRAUMATIC, NORMAL INSPECTION, NORMOCEPHALIC - Eye Exam Eye Exam: EOMI, Normal appearance, PERRL Pupil Exam: NORMAL ACCOMODATION, PERRL - ENT Exam ENT Exam: Mucous Membranes Moist, Normal Exam - Neck Exam Neck Exam: Full ROM, Normal Inspection. absent: Lymphadenopathy - Respiratory Exam Respiratory Exam: Decreased Breath Sounds - Cardiovascular Exam Cardiovascular Exam: REGULAR RHYTHM, +S1, +S2 - GI/Abdominal Exam GI & Abdominal Exam: Soft, Diminished Bowel Sounds - Rectal Exam Rectal Exam: Deferred
[2017-09-24 07:11] LABS: ALB/GLOB RATIO 0.9 (1.0-2.1); ALBUMIN 3.9 g/dL (3.5-5.0); BASO # 0.1 K/uL (0.0-0.2); BASO % 1.3 % (0.0-2.0); CALCIUM 8.7 mg/dl (8.6-10.4); EOS # 0.3 K/uL (0.0-0.7); EOS % 6.9 % (0.0-4.0); LYMPH # 0.8 K/uL (1.0-4.3); LYMPH % 16.4 % (20.0-40.0); MEAN CELL VOLUME 98.7 fL (80.0-94.0); MEAN CORPUSCULAR HEMOGLOBIN 32.7 pg (27.0-31.0); MEAN CORPUSCULAR HGB CONC 33.2 g/dL (33.0-37.0); MONO # 0.7 K/uL (0.0-0.8); NEUT # 2.8 K/uL (1.8-7.0); NEUT % 60.4 % (50.0-75.0); NRBC % 0.2 % (0.0-2.0); RBC 4.27 Mil/uL (4.40-5.90); RED CELL DISTRIBUTION WIDTH 18.4 % (11.5-14.5); WHITE BLOOD COUNT 4.7 K/uL (4.8-10.8)
[2017-09-24] MEDS: Pantoprazole 40 mg EC Tab PO SCH (09:20)
[2017-09-24] MEDS: Metoprolol Succinate 12.5 mg XL PO SCH ×2 (09:21→11:04)
--- NOTE | 2017-09-24 12:54 | RAD ---
Chest x-ray two views History: Cough. Comparison: 09/20/2017 Findings: Confluent consolidative changes at the left lung base with small left pleural effusion. Moderate venous congestion. Bilateral hilar prominence. Biapical pleural thickening with upper lobe granulomatous changes. Cardiomegaly. Calcification at the aortic knob. Degenerative changes in the spine and shoulders. Impression: Confluent consolidative changes at the left lung base with small left pleural effusion. Moderate venous congestion. Bilateral hilar prominence.
[2017-09-24] MEDS: Albuterol-Ipratrop 3 mg / 0.5 (3 ml) UD INH SCH ×2 (13:23→19:58)
--- NOTE | 2017-09-24 16:25 | CP.PCM.PN ---
Subjective - Date & Time of Evaluation Date of Evaluation: 09/24/17 Time of Evaluation: 16:24 - Subjective Subjective: Events reviewed. NSVT noted this AM Objective - Vital Signs/Intake and Output Vital Signs (last 24 hours): Temp Pulse Resp BP Pulse Ox 98 F 60 16 113/63 98 09/24/17 13:45 09/24/17 13:45 09/24/17 13:45 09/24/17 15:25 09/24/17 07:45 Intake and Output: 09/24/17 09/24/17 06:59 18:59 Intake Total 340 Output Total 1 Balance 339 - Medications Medications: Current Medications Albuterol/Ipratropium (Duoneb 3 Mg/0.5 Mg (3 Ml) Ud) 3 ml INH RQ6 [facility] Last Admin: 09/24/17 13:23 Dose: 3 ml Calcium Acetate (Phoslo) 667 mg PO HS [facility] Last Admin: 09/23/17 21:26 Dose: 667 mg Diphenhydramine HCl (Benadryl) 25 mg PO Q6 PRN PRN Reason: Itching / Pruritus Levetiracetam (Keppra) 500 mg PO BID [facility] Last Admin: 09/24/17 09:21 Dose: 500 mg Memantine (Namenda) 10 mg PO DAILY [facility] Last Admin: 09/24/17 09:21 Dose: 10 mg Metoprolol Succinate (Toprol Xl) 12.5 mg PO DAILY [facility] Last Admin: 09/24/17 11:04 Dose: Not Given Pantoprazole Sodium (Protonix Ec Tab) 40 mg PO DAILY [facility] Last Admin: 09/24/17 09:20 Dose: 40 mg Rosuvastatin Calcium (Crestor) 10 mg PO [facility] Last Admin: 09/23/17 21:25 Dose: 10 mg Topiramate (Topamax) 25 mg PO BID [facility] Last Admin: 09/24/17 11:04 Dose: Not Given - Labs Labs: 09/24/17 06:34 09/24/17 06:34 PT 20.4 SECONDS (9.7-12.2) H 09/21/17 08:10 INR 1.8 09/21/17 08:10 APTT 40 SECONDS (21-34) H 09/20/17 12:56 - Constitutional Appears: Well, Confused - Respiratory Exam Respiratory Exam: Clear to Ausculation Bilateral, NORMAL BREATHING PATTERN - Cardiovascular Exam Cardiovascular Exam: REGULAR RHYTHM, RRR, +S1, +S2 (AVF ), Murmur. absent: JVD - GI/Abdominal Exam GI & Abdominal Exam: Normal Bowel Sounds. absent: Organomegaly Assessment and Plan - Assessment and Plan (Free Text) Assessment: Assessment: 1. s/p fall ? seizure ? CVA F/U neurology recc 2. NSVT > PVCs isolated on EKG otherwise NSR, no acute ischemic changes > BDLN troponin: no active CP/Angina, no ADHF or hemodynamic instability ECHO directly reviewed by me: Severe global hypokinesia EF <25%, RVE, LAE moderate, mild-mod MR, mod TR, severe PULM HTN PASP 70mmHg, aortic sclerosis with focal calcification but no stenosis. Flattening of septum, Probably RV dysfunction. SEVERE DILATED CARDIOMYOPATHY: ---> GIVEN CHRONIC DEMENTIA...I DO NOT FEEL HE IS CAPABLE OF UNDERSTANDING RX OR OPTIONS. ---> Discussed case with PMD & [employer]: Patient should have optimization of CHF therapy and LIfe vest placement: with eventual discussion of additional cardiac w/u as outpatient (cath versus stress testing) to establish ischemic versus NICM cause of CM --> f/u EP recc. --> meanwhile he needs addition and titration of CHF therapy: ---> change toprol to coreg 3.125 BID, add aldactone 12.5 and jessica-I and titrate up as BP and HR tolerates. ---> HD TTS to control volume status +/- lasix if non-oliguric --> Keep Mg > 2.0 ---> Given RV enlargement: suggest CT angio versus V/Q to r/o PE. (discussed case with [employer])----> deferred by patient (Clinically low suspicion for any PE) ---> Add ASA 81 Noted PLT 121 3. HTN > controlled/Normal 4. LIPIDS > on Crestor 5. DM > Monitor sugars: Rx per PMD 6. ESRD > HD per schedule
--- NOTE | 2017-09-24 16:53 | CP.PCM.PN ---
Subjective - Date & Time of Evaluation Date of Evaluation: 09/24/17 Time of Evaluation: 12:40 - Subjective Subjective: clinically same Objective - Vital Signs/Intake and Output Vital Signs (last 24 hours): Temp Pulse Resp BP Pulse Ox 98 F 60 16 113/63 98 09/24/17 13:45 09/24/17 13:45 09/24/17 13:45 09/24/17 15:25 09/24/17 07:45 Intake and Output: 09/24/17 09/24/17 06:59 18:59 Intake Total 340 Output Total 1 Balance 339 - Medications Medications: Current Medications Albuterol/Ipratropium (Duoneb 3 Mg/0.5 Mg (3 Ml) Ud) 3 ml INH RQ6 [facility] Last Admin: 09/24/17 13:23 Dose: 3 ml Calcium Acetate (Phoslo) 667 mg PO [facility] Last Admin: 09/23/17 21:26 Dose: 667 mg Diphenhydramine HCl (Benadryl) 25 mg PO Q6 PRN PRN Reason: Itching / Pruritus Levetiracetam (Keppra) 500 mg PO BID [facility] Last Admin: 09/24/17 09:21 Dose: 500 mg Memantine (Namenda) 10 mg PO DAILY [facility] Last Admin: 09/24/17 09:21 Dose: 10 mg Metoprolol Succinate (Toprol Xl) 12.5 mg PO DAILY [facility] Last Admin: 09/24/17 11:04 Dose: Not Given Pantoprazole Sodium (Protonix Ec Tab) 40 mg PO DAILY [facility] Last Admin: 09/24/17 09:20 Dose: 40 mg Rosuvastatin Calcium (Crestor) 10 mg PO [facility] Last Admin: 09/23/17 21:25 Dose: 10 mg Topiramate (Topamax) 25 mg PO BID [facility] [place] Last Admin: 09/24/17 11:04 Dose: Not Given - Labs Labs: 09/24/17 06:34 09/24/17 06:34 PT 20.4 SECONDS (9.7-12.2) H 09/21/17 08:10 INR 1.8 09/21/17 08:10 APTT 40 SECONDS (21-34) H 09/20/17 12:56 - Constitutional Appears: Well - Head Exam Head Exam: ATRAUMATIC, NORMAL INSPECTION, NORMOCEPHALIC - Eye Exam Eye Exam: EOMI, Normal appearance, PERRL Pupil Exam: NORMAL ACCOMODATION, PERRL - ENT Exam ENT Exam: Mucous Membranes Moist, Normal Exam - Neck Exam Neck Exam: Full ROM, Normal Inspection. absent: Lymphadenopathy - Respiratory Exam Respiratory Exam: Decreased Breath Sounds - Cardiovascular Exam Cardiovascular Exam: REGULAR RHYTHM, +S1, +S2 - GI/Abdominal Exam GI & Abdominal Exam: Soft, Diminished Bowel Sounds - Rectal Exam Rectal Exam: Deferred
[2017-09-25] MEDS: Albuterol-Ipratrop 3 mg / 0.5 (3 ml) UD INH SCH ×4 (01:07→20:18)
[2017-09-25] MEDS: guaiFENesin 600 mg ER Tab PO SCH ×2 (06:38→09:54)
[2017-09-25 08:34] LABS: ALB/GLOB RATIO 0.9 (1.0-2.1); ALBUMIN 3.6 g/dL (3.5-5.0); CALCIUM 8.4 mg/dl (8.6-10.4)
[2017-09-25 08:46] LABS: BASO % 1.1 % (0.0-2.0); EOS # 0.2 K/uL (0.0-0.7); EOS % 5.5 % (0.0-4.0); HEMOGLOBIN 12.8 g/dL (12.0-18.0); LYMPH # 0.7 K/uL (1.0-4.3); LYMPH % 15.8 % (20.0-40.0); MEAN CELL VOLUME 98.6 fL (80.0-94.0); MEAN CORPUSCULAR HEMOGLOBIN 32.3 pg (27.0-31.0); MEAN CORPUSCULAR HGB CONC 32.7 g/dL (33.0-37.0); MEAN PLATELET VOLUME 8.1 fL (7.2-11.7); MONO # 0.6 K/uL (0.0-0.8); MONO % 13.2 % (0.0-10.0); NEUT # 2.8 K/uL (1.8-7.0); NEUT % 64.4 % (50.0-75.0); NRBC % 0.4 % (0.0-2.0); RBC 3.95 Mil/uL (4.40-5.90); RED CELL DISTRIBUTION WIDTH 18.7 % (11.5-14.5); WHITE BLOOD COUNT 4.3 K/uL (4.8-10.8)
[2017-09-25] MEDS: Pantoprazole 40 mg EC Tab PO SCH (09:54)
[2017-09-25] MEDS: Metoprolol Succinate 12.5 mg XL PO SCH ×3 (09:54→12:16)
--- NOTE | 2017-09-25 11:15 | US ---
Limited left upper extremity soft tissue ultrasound History: Swelling and pain. Comparison: None available. Technique: Real-time sonography was performed through the soft tissues of the left upper extremity at the site of the AV fistula. Findings: Small amount of reticulation and edema seen within the soft tissues of the left upper extremity at the site of the AV fistula. This may represent underlying cellulitic changes. Clinical correlation. If there is concern for vascular abnormality at this level, correlation with vascular ultrasound is recommended. Impression: Small amount of reticulation and edema seen within the soft tissues of the left upper extremity at the site of the AV fistula. This may represent underlying cellulitic changes. Clinical correlation. If there is concern for vascular abnormality at this level, correlation with vascular ultrasound is recommended.
--- NOTE | 2017-09-25 16:23 | CP.PCM.PN ---
Subjective - Date & Time of Evaluation Date of Evaluation: 09/25/17 Time of Evaluation: 13:40 - Subjective Subjective: clinically same Objective - Vital Signs/Intake and Output Vital Signs (last 24 hours): Temp Pulse Resp BP Pulse Ox 98.0 F 78 18 117/77 95 09/25/17 07:45 09/25/17 14:46 09/25/17 09:57 09/25/17 09:57 09/25/17 09:57 Intake and Output: 09/25/17 09/25/17 06:59 18:59 Intake Total 420 Balance 420 - Medications Medications: Current Medications Acetylcysteine (Acetylcysteine 20%) 4 ml INH RQ6 [facility] Albuterol/Ipratropium (Duoneb 3 Mg/0.5 Mg (3 Ml) Ud) 3 ml INH RQ6 [facility] Last Admin: 09/25/17 13:22 Dose: 3 ml Calcium Acetate (Phoslo) 667 mg PO HS [facility] Last Admin: 09/24/17 21:17 Dose: 667 mg Diphenhydramine HCl (Benadryl) 25 mg PO Q6 PRN PRN Reason: Itching / Pruritus Last Admin: 09/25/17 01:04 Dose: 25 mg Guaifenesin (Mucinex La) 600 mg PO BID [facility] Last Admin: 09/25/17 09:54 Dose: 600 mg Levetiracetam (Keppra) 500 mg PO BID [facility] Last Admin: 09/25/17 09:54 Dose: 500 mg Memantine (Namenda) 10 mg PO DAILY [facility] Last Admin: 09/25/17 09:55 Dose: 10 mg Metoprolol Succinate (Toprol Xl) 12.5 mg PO DAILY [facility] Last Admin: 09/25/17 12:16 Dose: 12.5 mg Pantoprazole Sodium (Protonix Ec Tab) 40 mg PO DAILY [facility] Last Admin: 09/25/17 09:54 Dose: 40 mg Rosuvastatin Calcium (Crestor) 10 mg PO HS [facility] Last Admin: 09/24/17 21:17 Dose: 10 mg Topiramate (Topamax) 25 mg PO BID [facility] Last Admin: 09/25/17 09:55 Dose: 25 mg - Labs Labs: 09/25/17 08:06 09/25/17 08:06 PT 20.4 SECONDS (9.7-12.2) H 09/21/17 08:10 INR 1.8 09/21/17 08:10 APTT 40 SECONDS (21-34) H 09/20/17 12:56
--- NOTE | 2017-09-26 | CP.PCM.PN ---
Subjective - Date & Time of Evaluation Date of Evaluation: 09/25/17 Time of Evaluation: 08:05 - Subjective Subjective: Events reviewed Objective - Vital Signs/Intake and Output Vital Signs (last 24 hours): Temp Pulse Resp BP Pulse Ox 97.5 F L 75 18 114/83 96 09/25/17 15:00 09/25/17 17:46 09/25/17 15:00 09/25/17 17:46 09/25/17 15:00 - Medications Medications: Current Medications Acetylcysteine (Acetylcysteine 20%) 4 ml INH RQ6 [facility] Albuterol/Ipratropium (Duoneb 3 Mg/0.5 Mg (3 Ml) Ud) 3 ml INH RQ6 [facility] Last Admin: 09/25/17 20:18 Dose: 3 ml Calcium Acetate (Phoslo) 667 mg PO HS [facility] Last Admin: 09/25/17 22:11 Dose: 667 mg Carvedilol (Coreg) 3.125 mg PO BID [facility] Last Admin: 09/25/17 17:46 Dose: 3.125 mg Diphenhydramine HCl (Benadryl) 25 mg PO Q6 PRN PRN Reason: Itching / Pruritus Last Admin: 09/25/17 01:04 Dose: 25 mg Guaifenesin (Mucinex La) 600 mg PO BID [facility] Last Admin: 09/25/17 09:54 Dose: 600 mg Levetiracetam (Keppra) 500 mg PO BID [facility] Last Admin: 09/25/17 17:46 Dose: 500 mg Memantine (Namenda) 10 mg PO DAILY [facility] Last Admin: 09/25/17 09:55 Dose: 10 mg Pantoprazole Sodium (Protonix Ec Tab) 40 mg PO DAILY [facility] Last Admin: 09/25/17 09:54 Dose: 40 mg Rosuvastatin Calcium (Crestor) 10 mg PO HS [facility] Last Admin: 09/25/17 22:11 Dose: 10 mg Topiramate (Topamax) 25 mg PO BID [facility] Last Admin: 09/25/17 17:46 Dose: 25 mg - Labs Labs: 09/25/17 08:06 09/25/17 08:06 PT 20.4 SECONDS (9.7-12.2) H 09/21/17 08:10 INR 1.8 09/21/17 08:10 APTT 40 SECONDS (21-34) H 09/20/17 12:56 - Constitutional Appears: Well, Confused, Chronically Ill - Respiratory Exam Respiratory Exam: Clear to Ausculation Bilateral, NORMAL BREATHING PATTERN - Cardiovascular Exam Cardiovascular Exam: REGULAR RHYTHM, RRR, +S1, +S2. absent: JVD - GI/Abdominal Exam GI & Abdominal Exam: Normal Bowel Sounds. absent: Organomegaly Assessment and Plan - Assessment and Plan (Free Text) Assessment: 1. s/p fall ? seizure ? CVA F/U neurology recc 2. NSVT > PVCs isolated on EKG otherwise NSR, no acute ischemic changes > BDLN troponin: no active CP/Angina, no ADHF or hemodynamic instability > Keep Mg > 2.2, K >4.0 ECHO directly reviewed by me: Severe global hypokinesia EF <25%, RVE, LAE moderate, mild-mod MR, mod TR, severe PULM HTN PASP 70mmHg, aortic sclerosis with focal calcification but no stenosis. Flattening of septum, Probably RV dysfunction. SEVERE DILATED CARDIOMYOPATHY: ---> GIVEN CHRONIC DEMENTIA...I DO NOT FEEL HE IS CAPABLE OF UNDERSTANDING RX OR OPTIONS. ---> Discussed case with PMD & RETAIL ADVISOR: Patient should have optimization of CHF therapy and LIfe vest placement: with eventual discussion of additional cardiac w/u as outpatient (cath versus stress testing) to establish ischemic versus NICM cause of CM --> f/u EP recc. --> meanwhile he needs addition and titration of CHF therapy: ---> change toprol to coreg 3.125 BID, add aldactone 12.5 and jessica-I and titrate up as BP and HR tolerates. ---> HD TTS to control volume status +/- lasix if non-oliguric --> Keep Mg > 2.0 ---> Given RV enlargement: suggest CT angio versus V/Q to r/o PE. (discussed case with RETAIL ADVISOR)----> deferred by patient (Clinically low suspicion for any PE) ---> Add ASA 81 Noted PLT 121 3. HTN > controlled/Normal 4. LIPIDS > on Crestor 5. DM > Monitor sugars: Rx per PMD 6. ESRD > HD per schedule
[2017-09-26] MEDS: Acetylcysteine 20% Inhal Soln (4ml) INH SCH ×4 (03:12→19:34)
[2017-09-26] MEDS: Albuterol-Ipratrop 3 mg / 0.5 (3 ml) UD INH SCH ×4 (03:12→19:34)
[2017-09-26 07:18] LABS: BASO # 0.1 K/uL (0.0-0.2); MEAN CORPUSCULAR HGB CONC 32.7 g/dL (33.0-37.0)
[2017-09-26 07:28] LABS: EOS # 0.3 K/uL (0.0-0.7); HEMOGLOBIN 12.8 g/dL (12.0-18.0); MEAN PLATELET VOLUME 8.2 fL (7.2-11.7)
[2017-09-26 07:53] LABS: BASO % 1.1 % (0.0-2.0); EOS % 6.7 % (0.0-4.0); LYMPH # 0.8 K/uL (1.0-4.3); LYMPH % 16.8 % (20.0-40.0); MEAN CELL VOLUME 98.2 fL (80.0-94.0); MEAN CORPUSCULAR HEMOGLOBIN 32.1 pg (27.0-31.0); MONO # 0.8 K/uL (0.0-0.8); MONO % 16.6 % (0.0-10.0); NEUT # 2.8 K/uL (1.8-7.0); NEUT % 58.8 % (50.0-75.0); NRBC % 1.5 % (0.0-2.0); RBC 3.98 Mil/uL (4.40-5.90); RED CELL DISTRIBUTION WIDTH 18.8 % (11.5-14.5); WHITE BLOOD COUNT 4.7 K/uL (4.8-10.8)
[2017-09-26 07:55] LABS: ALB/GLOB RATIO 0.9 (1.0-2.1); ALBUMIN 3.7 g/dL (3.5-5.0); CALCIUM 8.7 mg/dl (8.6-10.4); MAGNESIUM 2.3 mg/dL (1.6-2.3)
[2017-09-26] MEDS: guaiFENesin 600 mg ER Tab PO SCH ×2 (09:30→17:28)
[2017-09-26] MEDS: Pantoprazole 40 mg EC Tab PO SCH (09:30)
--- NOTE | 2017-09-26 09:49 | CP.PCM.PN ---
Subjective - Date & Time of Evaluation Date of Evaluation: 09/26/17 Time of Evaluation: 09:49 - Subjective Subjective: NO CP or SOB No N/V?D No fevers Clinically euvolemic Objective - Vital Signs/Intake and Output Vital Signs (last 24 hours): Temp Pulse Resp BP Pulse Ox 97.9 F 67 20 107/76 95 09/25/17 23:05 09/26/17 08:03 09/25/17 23:05 09/25/17 23:05 09/25/17 23:05 - Medications Medications: Current Medications Acetylcysteine (Acetylcysteine 20%) 4 ml INH RQ6 [facility] Last Admin: 09/26/17 07:30 Dose: Not Given Albuterol/Ipratropium (Duoneb 3 Mg/0.5 Mg (3 Ml) Ud) 3 ml INH RQ6 [facility] Last Admin: 09/26/17 07:29 Dose: 3 ml Calcium Acetate (Phoslo) 667 mg PO HS [facility] Last Admin: 09/25/17 22:11 Dose: 667 mg Carvedilol (Coreg) 3.125 mg PO BID [facility] Last Admin: 09/26/17 09:30 Dose: 3.125 mg Diphenhydramine HCl (Benadryl) 25 mg PO Q6 PRN PRN Reason: Itching / Pruritus Last Admin: 09/26/17 09:33 Dose: 25 mg Guaifenesin (Mucinex La) 600 mg PO BID [facility] Last Admin: 09/26/17 09:30 Dose: 600 mg Levetiracetam (Keppra) 500 mg PO BID [facility] Last Admin: 09/26/17 09:30 Dose: 500 mg Memantine (Namenda) 10 mg PO DAILY [facility] Last Admin: 09/26/17 09:30 Dose: 10 mg Pantoprazole Sodium (Protonix Ec Tab) 40 mg PO DAILY [facility] Last Admin: 09/26/17 09:30 Dose: 40 mg Rosuvastatin Calcium (Crestor) 10 mg PO HS [facility] Last Admin: 09/25/17 22:11 Dose: 10 mg Spironolactone (Aldactone) 12.5 mg PO DAILY [facility] Topiramate (Topamax) 25 mg PO BID [facility] Last Admin: 09/26/17 09:30 Dose: 25 mg - Labs Labs: 09/26/17 06:58 09/26/17 06:58 PT 20.4 SECONDS (9.7-12.2) H 09/21/17 08:10 INR 1.8 09/21/17 08:10 APTT 40 SECONDS (21-34) H 09/20/17 12:56 - Constitutional Appears: No Acute Distress - Head Exam Head Exam: NORMOCEPHALIC - Eye Exam Eye Exam: EOMI, Normal appearance - ENT Exam ENT Exam: Mucous Membranes Moist, Normal Oropharynx - Respiratory Exam Respiratory Exam: Clear to Ausculation Bilateral, NORMAL BREATHING PATTERN. absent: Rhonchi, Wheezes - Cardiovascular Exam Cardiovascular Exam: REGULAR RHYTHM, +S1, +S2. absent: Gallop, +S4, Murmur - GI/Abdominal Exam GI & Abdominal Exam: Soft. absent: Tenderness - Extremities Exam Extremities Exam: absent: Calf Tenderness, Pedal Edema - Neurological Exam Neurological Exam: Alert, Awake - Skin Skin Exam: Normal Color, Rash (venous stasis changes), Warm Assessment and Plan - Assessment and Plan (Free Text) Assessment: 1. s/p fall ? seizure ? CVA F/U neurology recc 2. NSVT > PVCs isolated on EKG otherwise NSR, no acute ischemic changes > BDLN troponin: no active CP/Angina, no ADHF or hemodynamic instability > Keep Mg > 2.2, K >4.0 ECHO directly reviewed by me: Severe global hypokinesia EF <25%, RVE, LAE moderate, mild-mod MR, mod TR, severe PULM HTN PASP 70mmHg, aortic sclerosis with focal calcification but no stenosis. Flattening of septum, Probably RV dysfunction. SEVERE DILATED CARDIOMYOPATHY: ---> GIVEN CHRONIC DEMENTIA...I DO NOT FEEL HE IS CAPABLE OF UNDERSTANDING RX OR OPTIONS. ---> Discussed case with PMD & [employer]: Patient should have optimization of CHF therapy and LIfe vest placement: with eventual discussion of additional cardiac w/u as outpatient (cath versus stress testing) to establish ischemic versus NICM cause of CM PLAN: LIFE VEST cont coreg 3.125 BID and titrate up if BP tolerates Cont Aldactone 12.5 daily and titrate to 25 if possible Suggest ARLETTE-I in addition to above if compliance and hyperkalemia risk can be mitigated by HD ---> HD TTS to control volume status +/- lasix if non-oliguric --> Keep Mg > 2.0 ---> Add ASA 81 Noted PLT 121 3. HTN > controlled/Normal 4. LIPIDS > on Crestor 5. DM > Monitor sugars: Rx per PMD 6. ESRD > HD per schedule ONCE LIFE VEST fitted; can d/c with outpatient f/u and re-eval of echo/LVEF in 90 days. SOCIAL work to re-emphasize with patient and regards importanvce of vest and outpatient f/u.
--- NOTE | 2017-09-26 13:09 | CP.PCM.PN ---
Subjective - Date & Time of Evaluation Date of Evaluation: 09/26/17 Time of Evaluation: 13:00 - Subjective Subjective: Progress note. Attending: Dr. Franco Urrutia Pt seen and examined at bedside. No acute distress. No events overnight. No fevers, chills, vomiting, diarrhea. Objective - Vital Signs/Intake and Output Vital Signs (last 24 hours): Temp Pulse Resp BP Pulse Ox 97.9 F 67 20 107/76 95 09/25/17 23:05 09/26/17 08:03 09/25/17 23:05 09/25/17 23:05 09/25/17 23:05 - Medications Medications: Current Medications Acetylcysteine (Acetylcysteine 20%) 4 ml INH RQ6 [facility] Last Admin: 09/26/17 07:30 Dose: Not Given Albuterol/Ipratropium (Duoneb 3 Mg/0.5 Mg (3 Ml) Ud) 3 ml INH RQ6 [facility] Last Admin: 09/26/17 07:29 Dose: 3 ml Calcium Acetate (Phoslo) 667 mg PO HS [facility] Last Admin: 09/25/17 22:11 Dose: 667 mg Carvedilol (Coreg) 3.125 mg PO Q8H [facility] Diphenhydramine HCl (Benadryl) 25 mg PO Q6 PRN PRN Reason: Itching / Pruritus Last Admin: 09/26/17 09:33 Dose: 25 mg Guaifenesin (Mucinex La) 600 mg PO BID [facility] Last Admin: 09/26/17 09:30 Dose: 600 mg Levetiracetam (Keppra) 500 mg PO BID [facility] Last Admin: 09/26/17 09:30 Dose: 500 mg Memantine (Namenda) 10 mg PO DAILY [facility] Last Admin: 09/26/17 09:30 Dose: 10 mg Pantoprazole Sodium (Protonix Ec Tab) 40 mg PO DAILY [facility] Last Admin: 09/26/17 09:30 Dose: 40 mg Rosuvastatin Calcium (Crestor) 10 mg PO HS [facility] Last Admin: 09/25/17 22:11 Dose: 10 mg Spironolactone (Aldactone) 12.5 mg PO DAILY [facility] Topiramate (Topamax) 25 mg PO BID [facility] Last Admin: 09/26/17 09:30 Dose: 25 mg - Labs Labs: 09/26/17 06:58 02/26/18 06:58 PT 20.4 SECONDS (9.7-12.2) H 09/21/17 08:10 INR 1.8 09/21/17 08:10 APTT 40 SECONDS (21-34) H 09/20/17 12:56 - Constitutional Appears: Non-toxic, No Acute Distress - Head Exam Head Exam: NORMOCEPHALIC. absent: ATRAUMATIC, NORMAL INSPECTION - Eye Exam Eye Exam: EOMI - Neck Exam Neck Exam: Full ROM, Normal Inspection - Respiratory Exam Respiratory Exam: NORMAL BREATHING PATTERN. absent: Respiratory Distress - Cardiovascular Exam Cardiovascular Exam: +S1, +S2 - GI/Abdominal Exam GI & Abdominal Exam: Soft, Normal Bowel Sounds. absent: Tenderness - Extremities Exam Extremities Exam: Full ROM, Normal Inspection - Neurological Exam Neurological Exam: Alert, Awake, CN II-XII Intact - Psychiatric Exam Psychiatric exam: Normal Affect, Normal Mood - Skin Skin Exam: Dry, Intact, Normal Color, Warm Assessment and Plan - Assessment and Plan (Free Text) Assessment: This is a 76 yo male with Syncope -no complaint of dizziness today -may be secondary to seizure disorder -pt sustained subgaleal hematoma -cardiology consult. recs appreciated -neurology consult. recs appreciated. -neurosurgery evaluation. recs appreciated. -no neurosurgical intervention -EKG: NSR, no ischemic changes, some PVCs -troponins elevated; most likely 2/2 to ESRD -brain mri shows no acute findings but is limited 2/2 to motion -echo shows severe low EF with EF below 20% and global hypokinesis; diastolic and sytolic dysfunction; acute on chronic -continue crestor Acute on Chronic CHF (Diastoloc / Systolic Dysfunction) 09/23: Per cardiology, pt will need life vest for 3 months (Dr. Pop will coordinate with life vest rep) and AICD in the buttermilk drier operator. -EF markedly decreased with EF of below 20% -diastolic and systolic dysfunction -cardiology is on board; will appreciate their recs; patient should be on sudden cardiac prophylaxis Per Cardiology - possible cath and eventual AICD (pt with chronic dimentia, will need convo with family). EP eval as initially he presented with Syncope. Keep Mg > 2.0. Given RV enlargement: suggest CT angio versus V/Q to r/o PE Ventricular tachycardia -episode overnight -pt is due for life vest hx of seizure disorder -continue keppra PO BID -continue topiramate BID ESRD -continue calcium acetate PO HS -HD as scheduled. hx of dementia -continue memantine GI/DVT ppx -scds -protonix discussed with Dr. Wood Urrutia; all management as per Dr. Wood Urrutia
[2017-09-26] MEDS: guaiFENesin 100 mg/5 ml Syrup UD PO PRN (17:28)
--- NOTE | 2017-09-26 19:09 | CP.PCM.PN ---
Subjective - Date & Time of Evaluation Date of Evaluation: 09/26/17 Time of Evaluation: 12:40 - Subjective Subjective: clinically same Objective - Vital Signs/Intake and Output Vital Signs (last 24 hours): Temp Pulse Resp BP Pulse Ox 97.5 F L 72 19 105/69 100 09/26/17 15:00 09/26/17 15:40 09/26/17 15:00 09/26/17 15:00 09/26/17 15:00 - Medications Medications: Current Medications Acetylcysteine (Acetylcysteine 20%) 4 ml INH RQ6 [facility] Last Admin: 09/26/17 07:30 Dose: Not Given Albuterol/Ipratropium (Duoneb 3 Mg/0.5 Mg (3 Ml) Ud) 3 ml INH RQ6 [facility] Last Admin: 09/26/17 13:09 Dose: 3 ml Calcium Acetate (Phoslo) 667 mg PO HS [facility] Last Admin: 09/25/17 22:11 Dose: 667 mg Carvedilol (Coreg) 3.125 mg PO Q8H [facility] Last Admin: 09/26/17 17:28 Dose: 3.125 mg Diphenhydramine HCl (Benadryl) 25 mg PO Q6 PRN PRN Reason: Itching / Pruritus Last Admin: 09/26/17 09:33 Dose: 25 mg Guaifenesin (Mucinex La) 600 mg PO BID [facility] Last Admin: 09/26/17 17:28 Dose: 600 mg Guaifenesin (Robitussin) 100 mg PO Q4H PRN PRN Reason: Cough Last Admin: 09/26/17 17:28 Dose: 100 mg Levetiracetam (Keppra) 500 mg PO BID [facility] Last Admin: 09/26/17 17:28 Dose: 500 mg Memantine (Namenda) 10 mg PO DAILY [facility] Last Admin: 09/26/17 09:30 Dose: 10 mg Pantoprazole Sodium (Protonix Ec Tab) 40 mg PO DAILY [facility] Last Admin: 09/26/17 09:30 Dose: 40 mg Rosuvastatin Calcium (Crestor) 10 mg PO HS [facility] Last Admin: 09/25/17 22:11 Dose: 10 mg Spironolactone (Aldactone) 12.5 mg PO DAILY [facility] Last Admin: 09/26/17 14:38 Dose: 12.5 mg Topiramate (Topamax) 25 mg PO BID [facility] Last Admin: 09/26/17 17:28 Dose: 25 mg - Labs Labs: 09/26/17 06:58 09/26/17 06:58 PT 20.4 SECONDS (9.7-12.2) H 09/21/17 08:10 INR 1.8 09/21/17 08:10 APTT 40 SECONDS (21-34) H 09/20/17 12:56 - Constitutional Appears: Well - Head Exam Head Exam: ATRAUMATIC, NORMAL INSPECTION, NORMOCEPHALIC - Eye Exam Eye Exam: EOMI, Normal appearance, PERRL Pupil Exam: NORMAL ACCOMODATION, PERRL - ENT Exam ENT Exam: Mucous Membranes Moist, Normal Exam - Neck Exam Neck Exam: Full ROM, Normal Inspection. absent: Lymphadenopathy - Respiratory Exam Respiratory Exam: Decreased Breath Sounds - Cardiovascular Exam Cardiovascular Exam: REGULAR RHYTHM, +S1, +S2 - GI/Abdominal Exam GI & Abdominal Exam: Soft, Diminished Bowel Sounds - Rectal Exam Rectal Exam: Deferred
[2017-09-27] MEDS: Albuterol-Ipratrop 3 mg / 0.5 (3 ml) UD INH SCH ×3 (01:42→14:41)
[2017-09-27] MEDS: Acetylcysteine 20% Inhal Soln (4ml) INH SCH ×3 (01:45→14:41)
[2017-09-27 07:24] LABS: BASO % 1.1 % (0.0-2.0); EOS # 0.2 K/uL (0.0-0.7); EOS % 5.2 % (0.0-4.0); HEMOGLOBIN 12.8 g/dL (12.0-18.0); LYMPH # 0.6 K/uL (1.0-4.3); LYMPH % 16.2 % (20.0-40.0); MEAN CELL VOLUME 98.6 fL (80.0-94.0); MEAN CORPUSCULAR HEMOGLOBIN 32.5 pg (27.0-31.0); MEAN PLATELET VOLUME 8.3 fL (7.2-11.7); MONO # 0.6 K/uL (0.0-0.8); MONO % 16.1 % (0.0-10.0); NEUT # 2.4 K/uL (1.8-7.0); NEUT % 61.4 % (50.0-75.0); NRBC % 0.1 % (0.0-2.0); RBC 3.95 Mil/uL (4.40-5.90); RED CELL DISTRIBUTION WIDTH 18.6 % (11.5-14.5)
[2017-09-27 07:40] LABS: ALBUMIN 3.9 g/dL (3.5-5.0); MAGNESIUM 2.4 mg/dL (1.6-2.3)
[2017-09-27] MEDS: guaiFENesin 600 mg ER Tab PO SCH ×2 (11:21→17:20)
[2017-09-27] MEDS: Pantoprazole 40 mg EC Tab PO SCH (11:21)
--- NOTE | 2017-09-27 11:38 | CP.PCM.PN ---
Subjective - Date & Time of Evaluation Date of Evaluation: 09/27/17 Time of Evaluation: 11:35 - Subjective Subjective: Progress note. Attending: DR. HEATHER ROLDAN. Pt seen and examined at bedside. No acute distress. No fevers, chills, vomiting , diarrhea. HD today. Objective - Vital Signs/Intake and Output Vital Signs (last 24 hours): Temp Pulse Resp BP Pulse Ox 96.7 F L 69 16 116/74 98 09/27/17 09:25 09/27/17 09:25 09/27/17 09:25 09/27/17 11:25 09/27/17 09:25 - Medications Medications: Current Medications Acetylcysteine (Acetylcysteine 20%) 4 ml INH RQ6 [facility] Last Admin: 09/27/17 07:30 Dose: Not Given Albuterol/Ipratropium (Duoneb 3 Mg/0.5 Mg (3 Ml) Ud) 3 ml INH RQ6 [facility] Last Admin: 09/27/17 07:30 Dose: 3 ml Calcium Acetate (Phoslo) 667 mg PO HS [facility] Last Admin: 09/26/17 21:42 Dose: 667 mg Carvedilol (Coreg) 3.125 mg PO Q8H [facility] Last Admin: 09/27/17 11:20 Dose: Not Given Diphenhydramine HCl (Benadryl) 25 mg PO Q6 PRN PRN Reason: Itching / Pruritus Last Admin: 09/26/17 09:33 Dose: 25 mg Guaifenesin (Mucinex La) 600 mg PO BID [facility] Last Admin: 09/27/17 11:21 Dose: Not Given Guaifenesin (Robitussin) 100 mg PO Q4H PRN PRN Reason: Cough Last Admin: 09/26/17 17:28 Dose: 100 mg Levetiracetam (Keppra) 500 mg PO BID [facility] Last Admin: 09/27/17 11:20 Dose: Not Given Memantine (Namenda) 10 mg PO DAILY [facility] Last Admin: 09/27/17 11:21 Dose: Not Given Pantoprazole Sodium (Protonix Ec Tab) 40 mg PO DAILY [facility] Last Admin: 09/27/17 11:21 Dose: Not Given Rosuvastatin Calcium (Crestor) 10 mg PO [facility] Last Admin: 09/26/17 21:42 Dose: 10 mg Spironolactone (Aldactone) 12.5 mg PO DAILY [facility] Last Admin: 09/27/17 11:20 Dose: Not Given Topiramate (Topamax) 25 mg PO BID [facility] Last Admin: 09/27/17 11:21 Dose: Not Given - Labs Labs: 09/27/17 07:05 09/27/17 07:05 PT 20.4 SECONDS (9.7-12.2) H 09/21/17 08:10 INR 1.8 09/21/17 08:10 APTT 40 SECONDS (21-34) H 09/20/17 12:56 - Constitutional Appears: Non-toxic, No Acute Distress - Head Exam Head Exam: ATRAUMATIC, NORMAL INSPECTION, NORMOCEPHALIC - Eye Exam Eye Exam: EOMI - ENT Exam ENT Exam: Mucous Membranes Moist - Neck Exam Neck Exam: Full ROM, Normal Inspection - Respiratory Exam Respiratory Exam: NORMAL BREATHING PATTERN. absent: Respiratory Distress - Cardiovascular Exam Cardiovascular Exam: +S1, +S2 - GI/Abdominal Exam GI & Abdominal Exam: Soft, Normal Bowel Sounds. absent: Tenderness - Extremities Exam Extremities Exam: Full ROM, Normal Inspection - Neurological Exam Neurological Exam: Alert, Awake, Oriented x3 - Psychiatric Exam Psychiatric exam: Normal Affect, Normal Mood - Skin Skin Exam: Dry, Intact, Normal Color, Warm Assessment and Plan - Assessment and Plan (Free Text) Plan: This is a 76 yo male with Syncope -no complaint of dizziness today -may be secondary to seizure disorder -pt sustained subgaleal hematoma -cardiology consult. recs appreciated -neurology consult. recs appreciated. -neurosurgery evaluation. recs appreciated. -no neurosurgical intervention -EKG: NSR, no ischemic changes, some PVCs -troponins elevated; most likely 2/2 to ESRD -brain mri shows no acute findings but is limited 2/2 to motion -echo shows severe low EF with EF below 20% and global hypokinesis; diastolic and sytolic dysfunction; acute on chronic -continue crestor Acute on Chronic CHF (Diastoloc / Systolic Dysfunction) 09/23: Per cardiology, pt will need life vest for 3 months (Dr. 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 -EF markedly decreased with EF of below 20% -diastolic and systolic dysfunction -cardiology is on board; will appreciate their recs; patient should be on sudden cardiac prophylaxis Per Cardiology - possible cath and eventual AICD (pt with chronic dimentia, will need convo with family). EP eval as initially he presented with Syncope. Keep Mg > 2.0. Given RV enlargement: suggest CT angio versus V/Q to r/o PE Ventricular tachycardia -resolved -pt is due for life vest hx of seizure disorder -continue keppra PO BID -continue topiramate BID ESRD -continue calcium acetate PO HS -HD as scheduled. hx of dementia -continue memantine GI/DVT ppx -scds -protonix discussed with Dr. Wood Roldan; all management as per Dr. Wood Roldan
[2017-09-27 12:50] VITALS: RESP 20
[2017-09-27 16:01] VITALS: BP 123/79; TEMP 97.7; O2SAT 99
[2017-09-27] MEDS: guaiFENesin 100 mg/5 ml Syrup UD PO PRN (16:51)
[2017-09-27 17:38] VITALS: PULSE 65
--- NOTE | 2017-09-27 17:53 | CP.PCM.PN ---
Subjective - Date & Time of Evaluation Date of Evaluation: 09/27/17 Time of Evaluation: 14:20 - Subjective Subjective: clinically same Objective - Vital Signs/Intake and Output Vital Signs (last 24 hours): Temp Pulse Resp BP Pulse Ox 97.7 F 65 20 123/79 99 09/27/17 15:55 09/27/17 16:46 09/27/17 15:55 09/27/17 15:55 09/27/17 15:55 - Labs Labs: 09/27/17 07:05 09/27/17 07:05 PT 20.4 SECONDS (9.7-12.2) H 09/21/17 08:10 INR 1.8 09/21/17 08:10 APTT 40 SECONDS (21-34) H 09/20/17 12:56 - Constitutional Appears: Well - Head Exam Head Exam: ATRAUMATIC, NORMAL INSPECTION, NORMOCEPHALIC - Eye Exam Eye Exam: EOMI, Normal appearance, PERRL Pupil Exam: NORMAL ACCOMODATION, PERRL - ENT Exam ENT Exam: Mucous Membranes Moist, Normal Exam - Neck Exam Neck Exam: Full ROM, Normal Inspection. absent: Lymphadenopathy - Respiratory Exam Respiratory Exam: Decreased Breath Sounds - Cardiovascular Exam Cardiovascular Exam: REGULAR RHYTHM, +S1, +S2 - GI/Abdominal Exam GI & Abdominal Exam: Soft, Diminished Bowel Sounds - Rectal Exam Rectal Exam: Deferred
== END 2017-09-27 17:32 | DRG 100 ==
LOC: C.ER 11:37 → C.9E 14:48 → C.6T 15:45
PROVIDERS: ADMIT Internal Medicine Nephrology; ATTEND Internal Medicine Nephrology
PROC: 0HQ1XZZ Repair Face Skin, External Approach (ICD-10-PCS; principal; 2017-09-20)
PROC: 5A1D70Z Performance of Urinary Filtration, Intermittent, Less than 6 Hours Per Day (ICD-10-PCS; 2017-09-21)
PROC: 5A1D70Z Performance of Urinary Filtration, Intermittent, Less than 6 Hours Per Day (ICD-10-PCS; 2017-09-23)
PROC: 5A1D70Z Performance of Urinary Filtration, Intermittent, Less than 6 Hours Per Day (ICD-10-PCS; 2017-09-25)
DX: G40.909 Epilepsy, unspecified, not intractable, without status epilepticus (principal); I50.43 Acute on chronic combined systolic (congestive) and diastolic (congestive) heart failure; I13.2 Hypertensive heart and chronic kidney disease with heart failure and with stage 5 chronic kidney disease, or end stage renal disease; I47.2 Ventricular tachycardia; I42.0 Dilated cardiomyopathy; I27.20 Pulmonary hypertension, unspecified; N18.6 End stage renal disease; E11.22 Type 2 diabetes mellitus with diabetic chronic kidney disease; S01.81XA Laceration without foreign body of other part of head, initial encounter; W19.XXXA Unspecified fall, initial encounter; I49.3 Ventricular premature depolarization; G30.1 Alzheimer's disease with late onset; F02.80 Dementia in other diseases classified elsewhere, unspecified severity, without behavioral disturbance, psychotic disturbance, mood disturbance, and anxiety; E78.2 Mixed hyperlipidemia; D63.1 Anemia in chronic kidney disease; Y92.129 Unspecified place in nursing home as the place of occurrence of the external cause; Z79.4 Long term (current) use of insulin; Z86.73 Personal history of transient ischemic attack (TIA), and cerebral infarction without residual deficits; Z99.2 Dependence on renal dialysis